=== PATIENT | female | born 1990 | race Two or more races ===

== ENCOUNTER 2022-08-17 08:42 | Inpatient (IN) | payer OTHER, SELFPAY ==
[2022-08-17 09:01] VITALS: BP 110/68; BP 125/93; PULSE 93; RESP 18; TEMP 36.6; O2SAT 97; O2SAT 99; BMI 22.3
--- NOTE | 2022-08-17 09:58 | ED_ITS ---
HPI - Psych General Chief Complaint: Psychiatric Symptoms <Ofelia Roper NP - Last Filed: 08/17/22 17:34> Stated Complaint: [id number] <Ofelia Roper NP - Last Filed: 08/17/22 17:34> Time Seen by Provider: 08/17/22 09:02 <Ofelia Roper NP - Last Filed: 08/17/22 17:34> Source: patient and EMS <Ofelia Roper NP - Last Filed: 08/17/22 17:34> Mode of arrival: EMS <Ofelia Roper NP - Last Filed: 08/17/22 17:34> Limitations: altered mental status <Ofelia Roper NP - Last Filed: 08/17/22 17:34> History of Present Illness HPI Narrative: 32-year-old female with no significant past medical history presents to the emergency department via EMS from [facility] as a section 12 for paranoia, visual/auditory hallucinations, delusion, responding to internal stimuli, not sleeping, history of trauma, and internally preoccupied. She reports occasional headaches, managed with OTC ibuprofen (last dose 4 am with relief of headache); and reports blurry vision which is alleviated when she wears her prescription glasses as her past medical history. During the patient interview, she states that over the last two years, she has had the thought that she has technology inside of her. She denies that the delusion began after a trauma, and states that it began 'randomly'. She denies any suicidal ideations or homicidal ideations during this interview. She states that she is not prescribed any psychiatric medication. She denies any physical ailments such as nausea, vomiting, fever, chills, chest pain, shortness of breath, abdominal pain, abnormal periods, or abnormal vaginal bleeding. <Ofelia Roper NP - Last Filed: 08/17/22 17:34> MD complaint: altered mental status <Ofelia Roper NP - Last Filed: 08/17/22 17:34> Onset (ago): unknown <Ofelia Roper NP - Last Filed: 08/17/22 17:34> History of same: Yes <Ofelia Roper NP - Last Filed: 08/17/22 17:34> Relieving factors: none <Ofelia Roper NP - Last Filed: 08/17/22 17:34> Exacerbating factors: none <Ofelia Roper NP - Last Filed: 08/17/22 17:34> Associated psychiatric symptoms: auditory hallucinations, visual hallucinations and delusions <Ofelia Roper NP - Last Filed: 08/17/22 17:34> Associated symptoms: denies other symptoms <Ofelia Roper [employer] - Last Filed: 08/17/22 17:34> Related Data Home Medications: Home Medications Medication Instructions Recorded Confirmed No Known Home Meds 08/17/22 08/17/22 <Ofelia Roper NP - Last Filed: 08/17/22 17:34> Allergies/Adverse Reactions: Allergies Allergy/AdvReac Type Severity Reaction Status Date / Time No Known Allergies Allergy Verified 08/17/22 09:14 <Ofelia Roper NP - Last Filed: 08/17/22 17:34> Review of Systems Review of Systems: Yes all other systems are reviewed and are negative <Ofelia Roper NP - Last Filed: 08/17/22 17:34> Constitutional: Constitutional: Reports no additional constitutional complaints, Denies chills, Denies fever(s), Reports headache(s) and Reports other (no changes in appetite) <Ofelia Roper NP - Last Filed: 08/17/22 17:34> Eyes: Eyes: Reports no additional eye complaints, Reports blurry vision (without her prescription eye glasses) and Denies change in vision <Ofelia Roper NP - Last Filed: 08/17/22 17:34> ENT: Reports system reviewed and no additional complaints, except as documented, Reports Normal hearing present, Reports headache(s), Denies nasal congestion and Denies sore throat <Ofelia Roper NP - Last Filed: 08/17/22 17:34> Cardiovascular: Cardiovascular: Reports no additional cardiovascular complaints, Denies chest pain and Denies dyspnea <Ofelia Roper NP - Last Filed: 08/17/22 17:34> Respiratory: Respiratory: Reports no additional respiratory complaints, Denies cough and Denies dyspnea <Ofelia Pluciennik, [employer] CLE[employer] - Last Filed: 08/17/22 17:34> Gastrointestinal: Gastrointestinal: Reports no additional gastrointestinal complaints, Denies abdominal pain, Denies change in bowel habits, Denies constipation, Denies diarrhea, Denies nausea and Denies vomiting <Ofelia Pluciennik, [employer]CASE [employer]ER - Last Filed: 08/17/22 17:34> Genitourinary: Genitourinary: Reports no additional female genitourinary complaints, Denies abnormal menses and Denies menorrhagia <Ofelia Pluciennik, [employer]CASE [employer]ER - Last Filed: 08/17/22 17:34> Musculoskeletal: Musculoskeletal: Reports no additional musculoskeletal complaints and Denies abnormal gait <Ofelia Pluciennik, [employer]CASE CLE[employer] - Last Filed: 08/17/22 17:34> Integumentary/Breasts: Skin/Breast: Reports system reviewed and no additional complaints, except as docu, Denies lesions, Denies rash and Denies sores <Ofelia Pluciennik, [employer] - Last Filed: 08/17/22 17:34> Neurologic: Reports system reviewed and no additional complaints, except as documented, Reports Normal hearing present, Denies Abnormal speech present, Denies abnormal gait and Reports headache(s) <Ofelia Pluciennik, [employer]ER - Last Filed: 08/17/22 17:34> Psychiatric: Psychiatric: Reports no additional psychiatric complaints, Reports abnormal sleep pattern, Reports anxiety, Denies change in appetite, Reports auditory hallucinations, Denies homicidal ideation and Denies suicidal ideation <Ofelia Pluciennik, [employer]CASE [employer]ER - Last Filed: 08/17/22 17:34> Endocrine: Endocrine: Reports no additional endocrine complaints <Ofelia Pluciennik, [employer]CASE [employer]ER - Last Filed: 08/17/22 17:34> Hematologic/Lymphatic: Hematologic/Lymphatic: Reports no additional hematologic/lymphatic complaints <Ofelia Pluciennik, [employer]CASE CLE[employer]ER - Last Filed: 08/17/22 17:34> Allergic/Immunologic: Allergic/Immunologic: Reports no additional allergic/immunologic complaints <Ofelia Pluciennik, [employer]CASE [employer]ER - Last Filed: 08/17/22 17:34> PMFSH Past Medical History Attestation statement: The following information was validated with the patient. <Ofelia Roper NP - Last Filed: 08/17/22 17:34> Source: old records reviewed <Ofelia Roper NP - Last Filed: 08/17/22 17:34> Social History Social History: Social History Alcohol intake: unknown Smoked in Last 30 Days: No Use of substances other than those prescribed or required for medical reasons: No Advance Directives: No Advance Directives Information Provided: No Patient : No <Ofelia Roper NP - Last Filed: 08/17/22 17:34> Physical Exam Vital Signs: Vital Signs: Last Vital Signs Temp 97.7 F 08/18/22 09:32 Pulse 113 H 08/18/22 09:32 Resp 13 08/18/22 09:32 BP 122/79 08/18/22 09:32 Pulse Ox 98 08/18/22 09:32 O2 Del Method 08/18/22 09:32 BMI result Body Mass Index 22.3 <Ofelia Roper NP - Last Filed: 08/17/22 17:34> Vital Signs: Last Vital Signs Temp 97.7 F 08/18/22 09:32 Pulse 113 H 08/18/22 09:32 Resp 13 08/18/22 09:32 BP 122/79 08/18/22 09:32 Pulse Ox 98 08/18/22 09:32 O2 Del Method 08/18/22 09:32 BMI result Body Mass Index 22.3 <Zain Pastrana MD - Last Filed: 08/18/22 09:42> Const: General: cooperative, no acute distress and alert <Ofelia Roper NP - Last Filed: 08/17/22 17:34> Nutritional Appearance: well nourished <Ofelia Roper NP - Last Filed: 08/17/22 17:34> Orientation/consciousness: patient oriented x3 <Ofelia Roper NP - Last Filed: 08/17/22 17:34> Limitations: altered mental status <Ofelia Roper NP - Last Filed: 08/17/22 17:34> HEENT: Head: Yes normal to inspection, Yes normocephalic and Yes atraumatic <Ofelia Roper [employer] - Last Filed: 08/17/22 17:34> Ears: hearing grossly normal bilaterally and external ears normal <Ofelia Roper [employer] - Last Filed: 08/17/22 17:34> General nose exam: Normal external nose present <Ofelia Roper [employer] - Last Filed: 08/17/22 17:34> Face and sinus: Yes normal facial exam and Yes face symmetric <Ofelia Roper [employer] - Last Filed: 08/17/22 17:34> Mouth: Normal oral and palatal mucosa present <Ofelia Roper [employer] - Last Filed: 08/17/22 17:34> Teeth and gingiva: dentition normal <Ofelia Roper [employer] CLE[employer] - Last Filed: 08/17/22 17:34> Eyes: General: appearance normal, both eyes and all related structures <Ofelia Roper [employer] - Last Filed: 08/17/22 17:34> Visual Flores: normal visual flores by confrontation <Ofelia Roper [employer] - Last Filed: 08/17/22 17:34> Alignment and Position: alignment normal <Ofelia Roper [employer] - Last Filed: 08/17/22 17:34> Periorbital: periorbital findings normal <Ofelia Roper [employer] - Last Filed: 08/17/22 17:34> Eyelids: Yes eyelids normal <Ofelia Roper [employer] CLE[employer] - Last Filed: 08/17/22 17:34> Conjunctivae: conjunctivae normal <Ofelia Roper [employer] CLE[employer] - Last Filed: 08/17/22 17:34> Sclerae: sclerae normal <Ofelia Roper [employer]CASE CLE[employer]ER - Last Filed: 08/17/22 17:34> Pupils: Equal, round and reactive pupils present <Ofelia Roper [employer] CLE[employer]ER - Last Filed: 08/17/22 17:34> EOM: EOMs intact bilaterally <Ofelia Roper [employer]ER - Last Filed: 08/17/22 17:34> Neck: Neck: Yes normal visual inspection and Yes full ROM <Ofelia Roper, P[employer]OWCASE CLE[employer]ER - Last Filed: 08/17/22 17:34> Chest: Chest palpation & inspection: normal inspection of the chest <Ofelia Martínqamar, [employer]CASE CLE[employer]ER - Last Filed: 08/17/22 17:34> Resp: Effort & Inspection: normal respiratory effort, able to speak in complete sentences and not labored <Ofelia Martíncasiemalinda, P[employer]OWCASE CLE[employer]ER - Last Filed: 08/17/22 17:34> Auscultation: clear to auscultation bilaterally <Ofelia Popjames, [employer] CLE[employer]ER - Last Filed: 08/17/22 17:34> Cardio: Rate: regular rate <Ofelia Jacquelin, P[employer]OWCASE CLE[employer]ER - Last Filed: 08/17/22 17:34> Rhythm: regular rhythm <Ofelia Martínqamar, P[employer]OWCASE CLE[employer]ER - Last Filed: 08/17/22 17:34> GI: Inspection: Yes normal to inspection <Ofelia Martíncasiemalinda, P[employer]OWCASE CLE[employer]ER - Last Filed: 08/17/22 17:34> Auscultation: normal bowel sounds <Ofelia Jacquelin, PILLOWCASE CLE[employer]ER - Last Filed: 08/17/22 17:34> Back/Spine/Pelvis: Cervical Spine: cervical ROM normal <Ofelia Popmichellemalinda, P[employer]CASE CLE[employer]ER - Last Filed: 08/17/22 17:34> Thoracic/Lumbar Spine: thoraco-lumbar ROM normal <Ofelia Roper, PILLOWCASE CLE[employer]ER - Last Filed: 08/17/22 17:34> Skin: General skin exam: no rashes or lesions noted <Ofelia Popmichellemalinda, PILLOWCASE CLE[employer]ER - Last Filed: 08/17/22 17:34> Neuro: General: patient oriented x3, gait normal and moves all extremities <Ofelia Martíncasiemalinda, PILLOWCASE CLEANER - Last Filed: 08/17/22 17:34> Cranial nerves: Yes Equal, round and reactive pupils present, Yes Bilaterally intact EOM present and Yes Normal hearing present <Ofelia Martíncasiemalinda, PILLOWCASE CLEANER - Last Filed: 08/17/22 17:34> Cognition (Neuro): abnormal cognition <Ofelia Jacquelin, PILLOWCASE CLE[employer]ER - Last Filed: 08/17/22 17:34> Speech: No Abnormal speech present <Ofeliaseth Roper, PILLOWCASE CLE[employer]ER - Last Filed: 08/17/22 17:34> Gait exam (Neuro): Normal gait present <Ofeliaseth Roper, PILLOWCASE CLE[employer]ER - Last Filed: 08/17/22 17:34> Motor exam (neuro): 5/5 motor strength present throughout <Ofelia Jacquelin, PILLOWCASE CLE[employer]ER - Last Filed: 08/17/22 17:34> Extrem: General: Yes normal to inspection, Yes full ROM and Yes capillary r efill normal <Ofelia Jacquelin, PILLOWCASE CLE[employer]ER - Last Filed: 08/17/22 17:34> Psych: Appearance: grossly normal <Ofelia Plucqamar, PILLOWCASE CLE[employer]ER - Last Filed: 08/17/22 17:34> Mental Status: other <Ofelia Jacquelin, PILLOWCASE CLE[employer]ER - Last Filed: 08/17/22 17:34> Speech and movement: Normal speech and movement present and Clear speech present; No Psychomotor agitation in speech present or Restless speech present <Ofelia Plucqamar, PILLOWCASE CLE[employer]ER - Last Filed: 08/17/22 17:34> Attitude: cooperative <Ofelia Plucqamar, PILLOWCASE CLE[employer]ER - Last Filed: 08/17/22 17:34> Thought process: Illogical thought process present <Ofelia Pljames, P[employer]OWCASE CLE[employer]ER - Last Filed: 08/17/22 17:34> Thought content: suicidality, no homicidality, delusions and Hallucination(s) present auditory and visual <Ofelia Jacquelin, PILLOWCASE CLE[employer]ER - Last Filed: 08/17/22 17:34> Insight: Fair insight present (Psych) <Ofelia Popucqamar, P[employer]OWCASE CLE[employer]ER - Last Filed: 08/17/22 17:34> Judgement: Fair judgement present (Psych) <Ofelia Plucienmalinda, PILLOWCASE CLE[employer]ER - Last Filed: 08/17/22 17:34> Course Reevaluation(s) Reevaluation #1: 0915: Diagnostics ordered. Blood work: CMP. Urine: MAYEN, , and culture. Covid swab. 1000: Consult to [facility] for crisis initiated 1030: Bloodwork unremarkable. Covid negative. 1115: Notified by [facility] that patient's family member was contacted and stating that she has had an acute decompensation over the last 3 weeks. Patient states she is seeing her brother and has plans to me him in [place] at 5:00 p.m. patient calm and cooperative at this time. Patient urinating without issue, however; refusing to provide urine for testing. 1230: Urine sample negative for infection, , and toxicology. Pt medically cleared. <Ofelia Roper NP - Last Filed: 08/17/22 17:34> Reevaluation #2: Stopped taking her meds and comes in disorganized and delirium, is currently a bed search on a section, had an uneventful night. <Zain Pastrana MD - Last Filed: 08/18/22 09:42> Time: 09:42 <Zain Pastrana MD - Last Filed: 08/18/22 09:42> Medications Administered Discontinued Medications Generic Name Dose Route Start Last Admin Trade Name Freq PRN Reason Stop Dose Admin Lorazepam 2 mg 08/17/22 23:30 08/17/22 23:33 Lorazepam 1 Mg Tablet PO 08/17/22 23:31 2 mg ONCE ONE Administration <Ofelia Roper NP - Last Filed: 08/17/22 17:34> Medications Administered Discontinued Medications Generic Name Dose Route Start Last Admin Trade Name Freq PRN Reason Stop Dose Admin Lorazepam 2 mg 08/17/22 23:30 08/17/22 23:33 Lorazepam 1 Mg Tablet PO 08/17/22 23:31 2 mg ONCE ONE Administration <Zain Pastrana MD - Last Filed: 08/18/22 09:42> MDM - Psych MDM Narrative Medical decision making narrative: 32-year-old female presenting to the ED by EMS from [facility] and crisis on a Section 12 for paranoia, delusions, auditory and visual hallucinations. Blood work reviewed and unremarkable. Toxicology negative. Ethanol level less than 10. Negative for COVID-19. Urine negative for infection or . Pt medically cleared. [facility] crisis consult initiated for psychiatric bed search. <Ofelia Roper NP - Last Filed: 08/17/22 17:34> Medical Records Attestation: I reviewed the patient's medical records. <Ofelia Roper NP - Last Filed: 08/17/22 17:34> Lab Data Attestation: I reviewed the patient's lab results. <Ofelia Roper NP - Last Filed: 08/17/22 17:34> Result diagrams: : 08/17/22 09:56 08/17/22 09:56 <Ofelia Roper NP - Last Filed: 08/17/22 17:34> Labs: Lab Results 08/17/22 08/17/22 08/17/22 Range/Units 09:53 09:56 09:56 WBC 6.0 (4.8-10.8) X10*3/uL RBC 4.38 (4.20-5.50) X10*6/uL Hgb 12.5 (12.0-16.0) g/dl Hct 37.9 (37.0-47.0) % MCV 86.5 (80.0-98.0) fL MCH 28.5 (27.0-33.0) pg MCHC 33.0 (31.0-35.0) g/dl RDW 13.1 (11.0-16.0) % Plt Count 220 (160-400) X10*3/uL MPV 9.6 (9.4-12.3) fL Immature Gran % (Auto) 0.2 (0.0-0.4) % Neut % (Auto) 68.5 (45-73) % Lymph % (Auto) 22.5 (20-40) % [place] % (Auto) 8.0 (2-11) % Eos % (Auto) 0.5 (0-4) % Baso % (Auto) 0.3 (0-2) % Lymph # (Auto) 1.4 (1.2-4.9) X10*3/uL [place] # (Auto) 0.5 (0.1-1.2) X10*3/uL Eos # (Auto) 0.0 (0.0-0.4) X10*3/uL Baso # (Auto) 0.0 (0.0-0.2) X10*3/uL Abs Immat Gran (auto) 0.01 (0.00-0.03) X10*3/uL Absolute Neuts (auto) 4.1 (2.0-8.3) x10*3/uL Absolute Nucleated RBC 0.000 (0.0-0.012) X10*3/uL Nucleated RBC % (auto) 0.0 (0.0-0.2) /100WBC Sodium 141 (135-145) mmol/L Potassium 3.7 (3.3-5.1) mmol/L Chloride 107 (96-108) mmol/L Carbon Dioxide 23 (22-29) mmol/L Anion Gap 15 (12-20) BUN 10 (9-16) mg/dL Creatinine 0.73 (0.5-1.4) mg/dL Estim Creat Clear Calc 96.4 Estimated GFR > 60 Random Glucose 102 (60-115) mg/dL Calcium 9.6 (8.4-10.2) mg/dL Total Bilirubin 0.5 (0.0-1.0) mg/dL AST 20 (5-31) U/L ALT 15 (0-31) U/L Alkaline Phosphatase 52 (39-117) U/L Total Protein 7.7 (6.5-8.0) g/dL Albumin 4.7 (3.5-5.0) g/dL Urine Color Urine Appearance Urine pH (5.0-9.0) Ur Specific [place] (1.005-1.025) Urine Protein (Neg-Trace) mg/dL Urine Glucose (UA) (Negative) mg/dL Urine Ketones (Negative) mg/dL Urine Blood (Negative) Urine Nitrite (Negative) Ur Leukocyte Esterase (Negative) Urine Test (NEGATIVE) Urine Opiates Screen (Not Detect) Urine Fentanyl Screen (Not Detect) Ur Barbiturates Screen (Not Detect) Ur Phencyclidine Scrn (Not Detect) Ur Amphetamines Screen (Not Detect) U Benzodiazepines Scrn (Not Detect) Urine Cocaine Screen (Not Detect) U Marijuana (THC) Screen (Not Detect) Ethyl Alcohol mg/dL COVID-19 (ANA MARIA) Negative (Negative) COVID-19 Clin Com See Note 08/17/22 08/17/22 08/17/22 Range/Units 09:56 12:18 12:18 WBC (4.8-10.8) X10*3/uL RBC (4.20-5.50) X10*6/uL Hgb (12.0-16.0) g/dl Hct (37.0-47.0) % MCV (80.0-98.0) fL MCH (27.0-33.0) pg MCHC (31.0-35.0) g/dl RDW (11.0-16.0) % Plt Count (160-400) X10*3/uL MPV (9.4-12.3) fL Immature Gran % (Auto) (0.0-0.4) % Neut % (Auto) (45-73) % Lymph % (Auto) (20-40) % [place] % (Auto) (2-11) % Eos % (Auto) (0-4) % Baso % (Auto) (0-2) % Lymph # (Auto) (1.2-4.9) X10*3/uL [place] # (Auto) (0.1-1.2) X10*3/uL Eos # (Auto) (0.0-0.4) X10*3/uL Baso # (Auto) (0.0-0.2) X10*3/uL Abs Immat Gran (auto) (0.00-0.03) X10*3/uL Absolute Neuts (auto) (2.0-8.3) x10*3/uL Absolute Nucleated RBC (0.0-0.012) X10*3/uL Nucleated RBC % (auto) (0.0-0.2) /100WBC Sodium (135-145) mmol/L Potassium (3.3-5.1) mmol/L Chloride (96-108) mmol/L Carbon Dioxide (22-29) mmol/L Anion Gap (12-20) BUN (9-16) mg/dL Creatinine (0.5-1.4) mg/dL Estim Creat Clear Calc Estimated GFR Random Glucose (60-115) mg/dL Calcium (8.4-10.2) mg/dL Total Bilirubin (0.0-1.0) mg/dL AST (5-31) U/L ALT (0-31) U/L Alkaline Phosphatase (39-117) U/L Total Protein (6.5-8.0) g/dL Albumin (3.5-5.0) g/dL Urine Color Yellow Urine Appearance Clear Urine pH 5.5 (5.0-9.0) Ur Specific [place] >= 1.030 H (1.005-1.025) Urine Protein Trace (Neg-Trace) mg/dL Urine Glucose (UA) Negative (Negative) mg/dL Urine Ketones >=160 (Negative) mg/dL Urine Blood Negative (Negative) Urine Nitrite Negative (Negative) Ur Leukocyte Esterase Negative (Negative) Urine Test NEGATIVE (NEGATIVE) Urine Opiates Screen (Not Detect) Urine Fentanyl Screen (Not Detect) Ur Barbiturates Screen (Not Detect) Ur Phencyclidine Scrn (Not Detect) Ur Amphetamines Screen (Not Detect) U Benzodiazepines Scrn (Not Detect) Urine Cocaine Screen (Not Detect) U Marijuana (THC) Screen (Not Detect) Ethyl Alcohol < 10 mg/dL COVID-19 (ANA MARIA) (Negative) COVID-19 Clin Com 08/17/22 Range/Units 12:18 WBC (4.8-10.8) X10*3/uL RBC (4.20-5.50) X10*6/uL Hgb (12.0-16.0) g/dl Hct (37.0-47.0) % MCV (80.0-98.0) fL MCH (27.0-33.0) pg MCHC (31.0-35.0) g/dl RDW (11.0-16.0) % Plt Count (160-400) X10*3/uL MPV (9.4-12.3) fL Immature Gran % (Auto) (0.0-0.4) % Neut % (Auto) (45-73) % Lymph % (Auto) (20-40) % [place] % (Auto) (2-11) % Eos % (Auto) (0-4) % Baso % (Auto) (0-2) % Lymph # (Auto) (1.2-4.9) X10*3/uL [place] # (Auto) (0.1-1.2) X10*3/uL Eos # (Auto) (0.0-0.4) X10*3/uL Baso # (Auto) (0.0-0.2) X10*3/uL Abs Immat Gran (auto) (0.00-0.03) X10*3/uL Absolute Neuts (auto) (2.0-8.3) x10*3/uL Absolute Nucleated RBC (0.0-0.012) X10*3/uL Nucleated RBC % (auto) (0.0-0.2) /100WBC Sodium (135-145) mmol/L Potassium (3.3-5.1) mmol/L Chloride (96-108) mmol/L Carbon Dioxide (22-29) mmol/L Anion Gap (12-20) BUN (9-16) mg/dL Creatinine (0.5-1.4) mg/dL Estim Creat Clear Calc Estimated GFR Random Glucose (60-115) mg/dL Calcium (8.4-10.2) mg/dL Total Bilirubin (0.0-1.0) mg/dL AST (5-31) U/L ALT (0-31) U/L Alkaline Phosphatase (39-117) U/L Total Protein (6.5-8.0) g/dL Albumin (3.5-5.0) g/dL Urine Color Urine Appearance Urine pH (5.0-9.0) Ur Specific [place] (1.005-1.025) Urine Protein (Neg-Trace) mg/dL Urine Glucose (UA) (Negative) mg/dL Urine Ketones (Negative) mg/dL Urine Blood (Negative) Urine Nitrite (Negative) Ur Leukocyte Esterase (Negative) Urine Test (NEGATIVE) Urine Opiates Screen Not Detected (Not Detect) Urine Fentanyl Screen Not Detected (Not Detect) Ur Barbiturates Screen Not Detected (Not Detect) Ur Phencyclidine Scrn Not Detected (Not Detect) Ur Amphetamines Screen Not Detected (Not Detect) U Benzodiazepines Scrn Not Detected (Not Detect) Urine Cocaine Screen Not Detected (Not Detect) U Marijuana (THC) Screen Not Detected (Not Detect) Ethyl Alcohol mg/dL COVID-19 (ANA MARIA) (Negative) COVID-19 Clin Com <Ofelia Roper NP - Last Filed: 08/17/22 17:34> Lab Results 08/17/22 08/17/22 08/17/22 Range/Units 09:53 09:56 09:56 WBC 6.0 (4.8-10.8) X10*3/uL RBC 4.38 (4.20-5.50) X10*6/uL Hgb 12.5 (12.0-16.0) g/dl Hct 37.9 (37.0-47.0) % MCV 86.5 (80.0-98.0) fL MCH 28.5 (27.0-33.0) pg MCHC 33.0 (31.0-35.0) g/dl RDW 13.1 (11.0-16.0) % Plt Count 220 (160-400) X10*3/uL MPV 9.6 (9.4-12.3) fL Immature Gran % (Auto) 0.2 (0.0-0.4) % Neut % (Auto) 68.5 (45-73) % Lymph % (Auto) 22.5 (20-40) % [place] % (Auto) 8.0 (2-11) % Eos % (Auto) 0.5 (0-4) % Baso % (Auto) 0.3 (0-2) % Lymph # (Auto) 1.4 (1.2-4.9) X10*3/uL [place] # (Auto) 0.5 (0.1-1.2) X10*3/uL Eos # (Auto) 0.0 (0.0-0.4) X10*3/uL Baso # (Auto) 0.0 (0.0-0.2) X10*3/uL Abs Immat Gran (auto) 0.01 (0.00-0.03) X10*3/uL Absolute Neuts (auto) 4.1 (2.0-8.3) x10*3/uL Absolute Nucleated RBC 0.000 (0.0-0.012) X10*3/uL Nucleated RBC % (auto) 0.0 (0.0-0.2) /100WBC Sodium 141 (135-145) mmol/L Potassium 3.7 (3.3-5.1) mmol/L Chloride 107 (96-108) mmol/L Carbon Dioxide 23 (22-29) mmol/L Anion Gap 15 (12-20) BUN 10 (9-16) mg/dL Creatinine 0.73 (0.5-1.4) mg/dL Estim Creat Clear Calc 96.4 Estimated GFR > 60 Random Glucose 102 (60-115) mg/dL Calcium 9.6 (8.4-10.2) mg/dL Total Bilirubin 0.5 (0.0-1.0) mg/dL AST 20 (5-31) U/L ALT 15 (0-31) U/L Alkaline Phosphatase 52 (39-117) U/L Total Protein 7.7 (6.5-8.0) g/dL Albumin 4.7 (3.5-5.0) g/dL Urine Color Urine Appearance Urine pH (5.0-9.0) Ur Specific [place] (1.005-1.025) Urine Protein (Neg-Trace) mg/dL Urine Glucose (UA) (Negative) mg/dL Urine Ketones (Negative) mg/dL Urine Blood (Negative) Urine Nitrite (Negative) Ur Leukocyte Esterase (Negative) Urine Test (NEGATIVE) Urine Opiates Screen (Not Detect) Urine Fentanyl Screen (Not Detect) Ur Barbiturates Screen (Not Detect) Ur Phencyclidine Scrn (Not Detect) Ur Amphetamines Screen (Not Detect) U Benzodiazepines Scrn (Not Detect) Urine Cocaine Screen (Not Detect) U Marijuana (THC) Screen (Not Detect) Ethyl Alcohol mg/dL COVID-19 (ANA MARIA) Negative (Negative) COVID-19 Clin Com See Note 08/17/22 08/17/22 08/17/22 Range/Units 09:56 12:18 12:18 WBC (4.8-10.8) X10*3/uL RBC (4.20-5.50) X10*6/uL Hgb (12.0-16.0) g/dl Hct (37.0-47.0) % MCV (80.0-98.0) fL MCH (27.0-33.0) pg MCHC (31.0-35.0) g/dl RDW (11.0-16.0) % Plt Count (160-400) X10*3/uL MPV (9.4-12.3) fL Immature Gran % (Auto) (0.0-0.4) % Neut % (Auto) (45-73) % Lymph % (Auto) (20-40) % [place] % (Auto) (2-11) % Eos % (Auto) (0-4) % Baso % (Auto) (0-2) % Lymph # (Auto) (1.2-4.9) X10*3/uL [place] # (Auto) (0.1-1.2) X10*3/uL Eos # (Auto) (0.0-0.4) X10*3/uL Baso # (Auto) (0.0-0.2) X10*3/uL Abs Immat Gran (auto) (0.00-0.03) X10*3/uL Absolute Neuts (auto) (2.0-8.3) x10*3/uL Absolute Nucleated RBC (0.0-0.012) X10*3/uL Nucleated RBC % (auto) (0.0-0.2) /100WBC Sodium (135-145) mmol/L Potassium (3.3-5.1) mmol/L Chloride (96-108) mmol/L Carbon Dioxide (22-29) mmol/L Anion Gap (12-20) BUN (9-16) mg/dL Creatinine (0.5-1.4) mg/dL Estim Creat Clear Calc Estimated GFR Random Glucose (60-115) mg/dL Calcium (8.4-10.2) mg/dL Total Bilirubin (0.0-1.0) mg/dL AST (5-31) U/L ALT (0-31) U/L Alkaline Phosphatase (39-117) U/L Total Protein (6.5-8.0) g/dL Albumin (3.5-5.0) g/dL Urine Color Yellow Urine Appearance Clear Urine pH 5.5 (5.0-9.0) Ur Specific [place] >= 1.030 H (1.005-1.025) Urine Protein Trace (Neg-Trace) mg/dL Urine Glucose (UA) Negative (Negative) mg/dL Urine Ketones >=160 (Negative) mg/dL Urine Blood Negative (Negative) Urine Nitrite Negative (Negative) Ur Leukocyte Esterase Negative (Negative) Urine Test NEGATIVE (NEGATIVE) Urine Opiates Screen (Not Detect) Urine Fentanyl Screen (Not Detect) Ur Barbiturates Screen (Not Detect) Ur Phencyclidine Scrn (Not Detect) Ur Amphetamines Screen (Not Detect) U Benzodiazepines Scrn (Not Detect) Urine Cocaine Screen (Not Detect) U Marijuana (THC) Screen (Not Detect) Ethyl Alcohol < 10 mg/dL COVID-19 (ANA MARIA) (Negative) COVID-19 Clin Com 08/17/22 Range/Units 12:18 WBC (4.8-10.8) X10*3/uL RBC (4.20-5.50) X10*6/uL Hgb (12.0-16.0) g/dl Hct (37.0-47.0) % MCV (80.0-98.0) fL MCH (27.0-33.0) pg MCHC (31.0-35.0) g/dl RDW (11.0-16.0) % Plt Count (160-400) X10*3/uL MPV (9.4-12.3) fL Immature Gran % (Auto) (0.0-0.4) % Neut % (Auto) (45-73) % Lymph % (Auto) (20-40) % [place] % (Auto) (2-11) % Eos % (Auto) (0-4) % Baso % (Auto) (0-2) % Lymph # (Auto) (1.2-4.9) X10*3/uL [place] # (Auto) (0.1-1.2) X10*3/uL Eos # (Auto) (0.0-0.4) X10*3/uL Baso # (Auto) (0.0-0.2) X10*3/uL Abs Immat Gran (auto) (0.00-0.03) X10*3/uL Absolute Neuts (auto) (2.0-8.3) x10*3/uL Absolute Nucleated RBC (0.0-0.012) X10*3/uL Nucleated RBC % (auto) (0.0-0.2) /100WBC Sodium (135-145) mmol/L Potassium (3.3-5.1) mmol/L Chloride (96-108) mmol/L Carbon Dioxide (22-29) mmol/L Anion Gap (12-20) BUN (9-16) mg/dL Creatinine (0.5-1.4) mg/dL Estim Creat Clear Calc Estimated GFR Random Glucose (60-115) mg/dL Calcium (8.4-10.2) mg/dL Total Bilirubin (0.0-1.0) mg/dL AST (5-31) U/L ALT (0-31) U/L Alkaline Phosphatase (39-117) U/L Total Protein (6.5-8.0) g/dL Albumin (3.5-5.0) g/dL Urine Color Urine Appearance Urine pH (5.0-9.0) Ur Specific [place] (1.005-1.025) Urine Protein (Neg-Trace) mg/dL Urine Glucose (UA) (Negative) mg/dL Urine Ketones (Negative) mg/dL Urine Blood (Negative) Urine Nitrite (Negative) Ur Leukocyte Esterase (Negative) Urine Test (NEGATIVE) Urine Opiates Screen Not Detected (Not Detect) Urine Fentanyl Screen Not Detected (Not Detect) Ur Barbiturates Screen Not Detected (Not Detect) Ur Phencyclidine Scrn Not Detected (Not Detect) Ur Amphetamines Screen Not Detected (Not Detect) U Benzodiazepines Scrn Not Detected (Not Detect) Urine Cocaine Screen Not Detected (Not Detect) U Marijuana (THC) Screen Not Detected (Not Detect) Ethyl Alcohol mg/dL COVID-19 (ANA MARIA) (Negative) COVID-19 Clin Com <Zain Pastrana MD - Last Filed: 08/18/22 09:42> Discharge Plan Discharge Clinical Impression: Acute paranoia <Ofelia Roper NP - Last Filed: 08/17/22 17:34> Patient Disposition: Still a Patient <Ofelia Roper NP - Last Filed: 08/17/22 17:34> Prescriptions: No Action No Known Home Meds <Ofelia Roper NP - Last Filed: 08/17/22 17:34> Interventions: [place]-Suicide Risk Severity Scale Last Done: 08/17/22 09:09 <Ofelia Roper NP - Last Filed: 08/17/22 17:34>
[2022-08-17 10:07] LABS: MANUAL DIFF FLAG NO
[2022-08-17 10:10] LABS: Basophils Percent Auto 0.3 % (0-2); Eosinophils Percent Auto 0.5 % (0-4); Hematocrit 37.9 % (37.0-47.0); Hemoglobin 12.5 g/dl (12.0-16.0); Imm Gran Abs Auto 0.01 X10*3/uL (0.00-0.03); Imm Gran Pct Auto 0.2 % (0.0-0.4); Lymphocytes Absolute Auto 1.4 X10*3/uL (1.2-4.9); Lymphocytes Percent Auto 22.5 % (20-40); Mean Corpuscular Hemoglobin 28.5 pg (27.0-33.0); Mean Corpuscular Volume 86.5 fL (80.0-98.0); Mean Platelet Volume 9.6 fL (9.4-12.3); Monocytes Absolute Auto 0.5 X10*3/uL (0.1-1.2); Neutrophils Absolute Auto 4.1 x10*3/uL (2.0-8.3); Neutrophils Percent Auto 68.5 % (45-73); Platelet Count 220 X10*3/uL (160-400); Red Blood Count 4.38 X10*6/uL (4.20-5.50); Red Cell Distribution Width 13.1 % (11.0-16.0)
[2022-08-17 10:23] LABS: COVID-19 Test Negative (Negative); IDNOW Serial# 55D5AD1C
[2022-08-17 10:24] LABS: Ethanol < 10 mg/dL
[2022-08-17 10:28] LABS: Alanine Aminotransferase 15 U/L (0-31); Albumin Level 4.7 g/dL (3.5-5.0); Alkaline Phosphatase 52 U/L (39-117); Anion Gap 15 (12-20); Aspartate Amino Transferase 20 U/L (5-31); Bilirubin Total 0.5 mg/dL (0.0-1.0); Blood Urea Nitrogen 10 mg/dL (9-16); Calcium 9.6 mg/dL (8.4-10.2); Carbon Dioxide 23 mmol/L (22-29); Chloride 107 mmol/L (96-108); Creatinine Clr Calc Pharmacy 96.4; Estimated Glomerular Filt Rate > 60; Glucose Random 102 mg/dL (60-115); Potassium 3.7 mmol/L (3.3-5.1); Sodium 141 mmol/L (135-145); Total Protein 7.7 g/dL (6.5-8.0)
--- NOTE | 2022-08-17 11:22 | PC.NURSE ---
Addendum entered by Marjorie Quiroga 08/17/22 14:47: Pt requesting to view s12. Photo copy made provided. Care team notified- care restaurant team member will come out to speak w/ patient and family. Original Note: Pt sister raul [phone] contacted regarding pt. Permission given to talk to sister by patient. Per sister: the patient had an acute decompensation in mental status x 3 weeks. progressing to visual hallucinations and responding to internal stimuli. Pt reports seeing brother and planning on meeting him in [place] at 1700. Per sister-brother has been for some time and the patient has been accusing raul and other family of lying to her about his and keeping [the brother]from me . Safety of patient assured. Pt given coloring books at this time.
[2022-08-17 12:27] LABS: Appearance Urine Clear; Color Urine Yellow; Glucose Urine UA Negative (Negative); Leukocyte Esterase Urine Negative (Negative); Nitrite Urine Negative (Negative); PH 5.5 (5.0-9.0); Specific Gravity - Urine >= 1.030 (1.005-1.025); Urine Blood Negative (Negative); Urine Ketones >=160 mg/dL (Negative); Urine Protein Trace mg/dL (Neg-Trace)
[2022-08-17 12:28] LABS: UPreg QC Valid YES; Urine Pregnancy NEGATIVE (NEGATIVE)
[2022-08-17 12:38] LABS: Amphetamine Screen Urine Not Detected (Not Detect); Barbiturates, Urine Not Detected (Not Detect); Benzodiazepines Screen Urine Not Detected (Not Detect); Cannabinoid Screen Urine Not Detected (Not Detect); Cocaine Screen Urine Not Detected (Not Detect); Fentanyl, urine Not Detected (Not Detect); Opiate Screen Urine Not Detected (Not Detect); Phencyclidine Screen Urine Not Detected (Not Detect)
[2022-08-17 23:28] VITALS: BP 133/91; PULSE 105; RESP 18; TEMP 36.6; O2SAT 99
[2022-08-17] MEDS: LORazepam 1 MG TABLET 2 MG PO (23:33)
--- NOTE | 2022-08-17 23:38 | PC.NURSE ---
Patient appears restless, frequently visiting bathroom, HR 105, provider notified/ordered Ativan 2 mg PO/administered as ordered/pending effect, patient reluctant to take medication but took after providing med education, behavior non concerning, patient continues to responding internal stimuli, disposition per [facility] is section 12 inpatient bed search, patient was assessed in the community, patient is currently not on any medication, she had been off her Citalopram since last April, will continue to monitor.
[2022-08-18 09:32] VITALS: BP 122/79; PULSE 113; RESP 13; TEMP 36.5; O2SAT 98
--- NOTE | 2022-08-18 10:56 | PC.NURSE ---
took a long shower this morning, i spoke w her and her mother about her section and plan for admission, pt denies hallucinations, seems like she doesn't think she needs admission but was not argumentative, good eye contact and pleasant
[2022-08-18 16:56] VITALS: BP 113/80; PULSE 106; RESP 15; TEMP 36.6; O2SAT 99
--- NOTE | 2022-08-18 17:37 | HO.PSYADMNOT ---
HPI Date of Service: 08/18/22 Chief Complaint: Psychosis HPI Narrative: Lin is a 32 y.o. female who carries a dx of schizoaffective disorder, bipolar type. She [place] [facility] [place] after her mother called crisis due to making delusional statements i.e. saying she is part of the [place] and speaking to her brother. She told crisis she has technology throughout her body, that she is friends with Leeann Faria and talks to her daily, laughing incongruently during assessment. She has not been sleeping x a few days. Impaired functioning i.e. leaves food on stove too long. Per pt?s mom, her sx have been worse x 2 weeks but have been ongoing x 3 yrs after her brother was murdered. Utox negative, No ETOH use. I spoke with pt this evening. She states she wants medication for sleep because her sleep is ?bad.? Says sleep has been poor for months, her daytime energy is ?very low,? she gets two hours at most. States she has a long hx of insomnia and it is worse now. Lack of benefit on melatonin and Benadryl. Says she is anxious, has a hx of panic attacks. Denies having nightmares or flashbacks. She admits to having AH, says she hears voices and they ?talk to me about stuff,? says they tell her good things and she can ignore them. Says her appetite is good. Reports she came to the hospital because she wants a psychiatrist. Mood is ?depressed,? however also says she has days in which her energy is high and she is ?dancing and praying? and this can last a few days. Denies SI, denies hx of self harm. Says she feels safe. Cuts interview off early, ?can we talk about this tomorrow?? Past Psychiatric History: -Has OP therapy from [facility] x a few months. -Hx of crisis evals, last 03/03/22 due to paranoia that someone has been following and watching her. Crisis eval 12/06/20 due to her mom contacting the police due to paranoia. -Past meds: celexa (took for a day or two, had GI SE) [facility] Family History: -Depression, anxiety, someone ?losing their mind,? substance use Social History: -Resides with pt?s mother (Liza) and daughter (David, age 13). -Unemployed, isolating in her room daily -Born in [place], moved [place] the [place] at age 8. Graduated from [employer], no IEP or 504. Substance History: -Denies Trauma History: -Brother murdered 12/05/2017 Diagnostics Vital Signs (24Hr): Vital Signs - 24 hr 08/17/22 23:28 08/18/22 09:32 08/18/22 16:56 Temperature 97.8 F 97.7 F 97.9 F Pulse Rate 105 H 113 H 106 H Respiratory Rate 18 13 15 Blood Pressure 133/91 H 122/79 113/80 Pulse Oximetry 99 98 99 Oxygen Delivery Method Room Air Room Air Room Air BMI result Body Mass Index 22.3 Labs Results: 08/17/22 09:56 08/17/22 09:56 Labs: Laboratory Results - last 48 hr 08/17/22 08/17/22 08/17/22 09:53 09:56 09:56 WBC 6.0 RBC 4.38 Hgb 12.5 Hct 37.9 MCV 86.5 MCH 28.5 MCHC 33.0 RDW 13.1 Plt Count 220 MPV 9.6 Immature Gran % (Auto) 0.2 Neut % (Auto) 68.5 Lymph % (Auto) 22.5 [place] % (Auto) 8.0 Eos % (Auto) 0.5 Baso % (Auto) 0.3 Lymph # (Auto) 1.4 [place] # (Auto) 0.5 Eos # (Auto) 0.0 Baso # (Auto) 0.0 Abs Immat Gran (auto) 0.01 Absolute Neuts (auto) 4.1 Absolute Nucleated RBC 0.000 Nucleated RBC % (auto) 0.0 Sodium 141 Potassium 3.7 Chloride 107 Carbon Dioxide 23 Anion Gap 15 BUN 10 Creatinine 0.73 Estim Creat Clear Calc 96.4 Estimated GFR > 60 Random Glucose 102 Calcium 9.6 Total Bilirubin 0.5 AST 20 ALT 15 Alkaline Phosphatase 52 Total Protein 7.7 Albumin 4.7 Urine Color Urine Appearance Urine pH Ur Specific [place] Urine Protein Urine Glucose (UA) Urine Ketones Urine Blood Urine Nitrite Ur Leukocyte Esterase Urine Test Urine Opiates Screen Urine Fentanyl Screen Ur Barbiturates Screen Ur Phencyclidine Scrn Ur Amphetamines Screen U Benzodiazepines Scrn Urine Cocaine Screen U Marijuana (THC) Screen Ethyl Alcohol COVID-19 (ANA MARIA) Negative COVID-19 Clin Com See Note 08/17/22 08/17/22 08/17/22 09:56 12:18 12:18 WBC RBC Hgb Hct MCV MCH MCHC RDW Plt Count MPV Immature Gran % (Auto) Neut % (Auto) Lymph % (Auto) [place] % (Auto) Eos % (Auto) Baso % (Auto) Lymph # (Auto) [place] # (Auto) Eos # (Auto) Baso # (Auto) Abs Immat Gran (auto) Absolute Neuts (auto) Absolute Nucleated RBC Nucleated RBC % (auto) Sodium Potassium Chloride Carbon Dioxide Anion Gap BUN Creatinine Estim Creat Clear Calc Estimated GFR Random Glucose Calcium Total Bilirubin AST ALT Alkaline Phosphatase Total Protein Albumin Urine Color Yellow Urine Appearance Clear Urine pH 5.5 Ur Specific [place] >= 1.030 H Urine Protein Trace Urine Glucose (UA) Negative Urine Ketones >=160 Urine Blood Negative Urine Nitrite Negative Ur Leukocyte Esterase Negative Urine Test NEGATIVE Urine Opiates Screen Urine Fentanyl Screen Ur Barbiturates Screen Ur Phencyclidine Scrn Ur Amphetamines Screen U Benzodiazepines Scrn Urine Cocaine Screen U Marijuana (THC) Screen Ethyl Alcohol < 10 COVID-19 (ANA MARIA) COVID-19 Clin Com 08/17/22 12:18 WBC RBC Hgb Hct MCV MCH MCHC RDW Plt Count MPV Immature Gran % (Auto) Neut % (Auto) Lymph % (Auto) [place] % (Auto) Eos % (Auto) Baso % (Auto) Lymph # (Auto) [place] # (Auto) Eos # (Auto) Baso # (Auto) Abs Immat Gran (auto) Absolute Neuts (auto) Absolute Nucleated RBC Nucleated RBC % (auto) Sodium Potassium Chloride Carbon Dioxide Anion Gap BUN Creatinine Estim Creat Clear Calc Estimated GFR Random Glucose Calcium Total Bilirubin AST ALT Alkaline Phosphatase Total Protein Albumin Urine Color Urine Appearance Urine pH Ur Specific [place] Urine Protein Urine Glucose (UA) Urine Ketones Urine Blood Urine Nitrite Ur Leukocyte Esterase Urine Test Urine Opiates Screen Not Detected Urine Fentanyl Screen Not Detected Ur Barbiturates Screen Not Detected Ur Phencyclidine Scrn Not Detected Ur Amphetamines Screen Not Detected U Benzodiazepines Scrn Not Detected Urine Cocaine Screen Not Detected U Marijuana (THC) Screen Not Detected Ethyl Alcohol COVID-19 (ANA MARIA) COVID-19 Clin Com Meds/Allergies Meds Home Medications Medication Instructions Recorded Confirmed Type No Known Home Meds 08/17/22 08/17/22 History Allergies Allergies Allergy/AdvReac Type Severity Reaction Status Date / Time No Known Allergies Allergy Verified 08/17/22 09:14 Mental Status Exam Mental Status Exam Narrative: Alert but not oriented to situation. Well groomed, good hygiene, normal body habitus, hospital attire. Poor eye contact, inattentive, insisting on standing. No Tics or Tremors. No abnormal involuntary movements. Calm, somewhat guarded, difficult to engage. Non-pressured speech, spontaneous with regular rate and rhythm, normal volume and prosody. No prolonged speech latency or dysarthria. Mood is ?depressed,? affect is incongruent. Denies SI/SIB/HI upon inquiry. Endorses AH, denies VH, hx of paranoid delusional thought content. Appears internally preoccupied. No known cognitive or memory impairment. Insight/ Judgment limited. Assessment & Plan Assessment & Plan (1) Schizoaffective disorder, bipolar type: Status: Acute Code(s): F25.0 - Schizoaffective disorder, bipolar type Plan Lin is a 32 y.o. female who carries a dx of schizoaffective disorder, bipolar type. She [place] [facility] [place] after her mother called crisis due to making delusional statements i.e. saying she is part of the [place] and speaking to her brother. She told crisis she has technology throughout her body, that she is friends with Leeann Faria and talks to her daily, laughing incongruently during assessment. She has not been sleeping x a few days. Impaired functioning i.e. leaves food on stove too long. Per pt?s mom, her sx have been worse x 2 weeks but have been ongoing x 3 yrs after her brother was murdered. Plan: Start olanzapine 5 mg HS for psychotic sx, increase as tolerated. Pt appears naive to antipsychotic medication. Pt asks for melatonin. Q15 min safety checks, CV Monitor response to medications. Monitor for safety in the milieu. Discharge on stabilization. Patient seen. Chart reviewed. Discussed with team. Obtain collateral contact info?as needed Patient educated on: diagnosis, medication risk/benefits and therapeutic strategies Reason for continued inpatient stay Substantial Risk for: inability to function, rapid decompensation and med/psych decompensation
--- NOTE | 2022-08-18 17:55 | PC.ADMIT ---
Patient is a 32y/o faroese speaking female admitted from the [facility] ED. The pt was referred by KONRAD to the hospital after her mother reported bizarre behavior such as, paranoia,believing the [facility] has planted technology in her body. She also believes people have been tracking her. She States, I know Leeann Faria and other celebrities and speaks to the daily. Pt's affect is flat, mood anxious and guarded, with quiet speech. Pt appeared distracted and preoccupied during interview. Pt was admitted on a CV, Unspecified Schizophrenia Spectrum and Unspecified Anxiety d/o. Pt denies any medical conditions. Pt denies AH/VH/HI, but reports these delusions are what stresses her out and interferes with her sleep and eating. Pt verbalizes that if my sleep could get better, I would be better . Pt denies medications, but it appears she was recently on Celexa. Mother reports that patient hasn't slept in days and here appetite has been poor. Her mother also reports that her daughter has been going to the park to talk to her brother. Pt had low tolerance for interview and requested to finish tomorrow.
[2022-08-18 20:30] VITALS: BP 103/70; PULSE 107; RESP 16; TEMP 36.7; O2SAT 98
[2022-08-18] MEDS: OLANZapine 5 MG TABLET PO (21:12)
[2022-08-19 09:02] LABS: Estimated Average Glucose 103 mg/dL; Hemoglobin A1c % 5.2 %
[2022-08-19 09:34] VITALS: BP 104/74; PULSE 83; RESP 16; TEMP 36.6; O2SAT 100
[2022-08-19 09:54] LABS: Cholesterol 155 mg/dL; HDL Cholesterol 51 mg/dL; LDL Cholesterol Calculated 90 mg/dl; Triglycerides 70 mg/dL
[2022-08-19 10:19] LABS: Free T4 (Free Thyroxine) 1.34 ng/dL (0.71-1.85); Thyroid Stimulating Hormone 2.29 uIU/mL (0.32-4.0)
--- NOTE | 2022-08-19 14:46 | P.PNPSI_ITS ---
Subjective Subjective Date of Service: 08/19/22 Reason For Visit: Psychosis Interim History: pt found in her room. flat, cooperative to a point. initially agrees to come with MD to interview room for discussion, but halts in the [facility] there. states she wants to discharge, repeatedly, arguing her point. states she is feeling better and would be better served being treated in her home. MD informs pt that is the next step after leaving the hospital but that we need to keep her here several days to ensure she is sleeping well and her improvements are sustained. later, pt's mother visits per pt request and MD is asked to join them, which he does, to answer mother's questions. pt and mother informed pt likely to be here 1-2 weeks, nature of illness and Tx reviewed. per staff, pt signed CV. psychotic. c/o insomnia. no sleep for several days prior to admission. appeared to sleep overnight. Mental Status Exam Mental Status Exam Narrative: Alert. Well groomed, good hygiene, normal body habitus, street clothes. good eye contact, attentive, holding interview in the middle of [place]. No Tics or Tremors. No abnormal involuntary movements. Calm, guarded, difficult to engage. Non-pressured speech, spontaneous with regular rate and rhythm, normal volume and prosody. No prolonged speech latency or dysarthria. Mood is ?better,? affect is flat. no SI/HI/AVH expressed. Appears internally preoccupied. No known cognitive or memory impairment. Insight/ Judgment limited. Diagnostics Vital Signs (24Hr): Vital Signs - 24 hr 08/18/22 16:56 08/18/22 20:30 08/19/22 09:34 Temperature 97.9 F 98.1 F 97.9 F Pulse Rate 106 H 107 H 83 Respiratory Rate 15 16 16 Blood Pressure 113/80 103/70 104/74 Pulse Oximetry 99 98 100 Oxygen Delivery Method Room Air Room Air Room Air BMI result Body Mass Index 22.3 Labs Results: 08/17/22 09:56 08/17/22 09:56 Labs: Laboratory Results - last 48 hr 08/19/22 08/19/22 08:34 08:34 Estimat Average Glucose 103 Hemoglobin A1c % 5.2 Magnesium 2.0 Triglycerides 70 Cholesterol 155 LDL Cholesterol, Calc 90 HDL Cholesterol 51 TSH 2.29 Free T4 1.34 Medications Medications Current Medications Acetaminophen (Acetaminophen 325 Mg Tablet) 650 mg PO Q6H PRN PRN Reason: Headache/Pain Mild Scale (1-3) Al Hydroxide/Mg Hydroxide (Magnesium Hydrox/Alum Hydrox 30 Ml Oral.Susp) 30 ml PO Q6H PRN PRN Reason: Heartburn/Nausea Hydroxyzine HCl (Hydroxyzine Hcl 25 Mg Tablet) 25 mg PO Q6H PRN PRN Reason: Anxiety Lorazepam (Lorazepam 1 Mg Tablet) 1 mg PO Q6H PRN PRN Reason: agitation Magnesium Hydroxide (Milk Of Magnesia 30 Ml Oral.Susp) 30 ml PO DAILY PRN PRN Reason: Constipation Melatonin (Melatonin 3 Mg Tablet) 3 mg PO BEDTIME PRN PRN Reason: insomnia Olanzapine (Olanzapine 5 Mg Tablet) 5 mg PO BEDTIME RADHA Last Admin: 08/18/22 21:12 Dose: 5 mg Trazodone HCl (Trazodone Hcl 50 Mg Tablet) 50 mg PO BEDTIME PRN PRN Reason: Insomnia Allergies Allergies Allergy/AdvReac Type Severity Reaction Status Date / Time No Known Allergies Allergy Verified 08/17/22 09:14 Assessment & Plan Assessment & Plan (1) Schizoaffective disorder, bipolar type: Status: Acute Code(s): F25.0 - Schizoaffective disorder, bipolar type Plan Lin is a 32 y.o. female who carries a dx of schizoaffective disorder, bipolar type. She presented to [facility] on 08/17/22 after her mother called crisis due to making delusional statements i.e. saying she is part of the [place] and speaking to her brother. She told crisis she has technology throughout her body, that she is friends with Leeann Faria and talks to her daily, laughing incongruently during assessment. She has not been sleeping x a few days. Impaired functioning i.e. leaves food on stove too long. Per pt?s mom, her sx have been worse x 2 weeks but have been ongoing x 3 yrs after her brother was murdered. 08/18: Started olanzapine 5 mg HS for psychotic sx, increase as tolerated. Pt appears naive to antipsychotic medication. Pt asks for melatonin. 08/19: slept well last night on zyprexa 5. guarded, flat, appears internally preoccupied. met with pt and her mother. I spent __35____ minutes with the patient and/or on the patient floor today, greater than?50% of which was spent counseling/coordinating care. Patient educated on: diagnosis and medication risk/benefits Guardian/Caregiver educated on: diagnosis and medication risk/benefits Reason for contiued inpatient stay Substantial Risk for: inability to function and rapid decompensation
[2022-08-19 16:03] LABS: Vitamin B12 506 pg/mL (200-900)
[2022-08-19 16:04] LABS: Folate 14.9 ng/mL (> or = 4.0)
[2022-08-19 20:30] VITALS: BP 123/91; PULSE 95; TEMP 36.5; O2SAT 100
[2022-08-19] MEDS: OLANZapine 5 MG TABLET PO (22:25)
[2022-08-20 06:00] VITALS: BP 99/60; PULSE 78; RESP 16; TEMP 36.6; O2SAT 94
[2022-08-20] MEDS: Milk of Magnesia 30 ML ORAL.SUSP PO (08:57)
--- NOTE | 2022-08-20 15:00 | HO.PSYCHPN ---
Subjective Subjective Date of Service: 08/20/22 Reason For Visit: Psychosis Interim History: paranoid, bizarre. seen with mother initially, then alone. mother reported pt is talking to her about her mentor, leeann rowell. pt agrees to come speak with MD after, but stands by the door and does not sit down. she appears blank, then says she needs to leave. MD asks why, she replies it is an emergency and that she will come back after. she then quickly exits the room and does not return. per staff, pt showering every few hours. reporting AH, does not report content. laughing to herself, sleeping adequately. no SI/HI. Mental Status Exam Mental Status Exam Narrative: Alert. Well groomed, good hygiene, normal body habitus, street clothes. good eye contact, difficulty attending. No Tics or Tremors. No abnormal involuntary movements. Calm, guarded, difficult to engage. Non-pressured speech, non-spontaneous with regular rate and rhythm, normal volume and prosody. + speech latency, no dysarthria. Mood is not assessed, affect is flat. no SI/HI/AVH expressed. Appears internally preoccupied. No known cognitive or memory impairment. Insight/ Judgment limited. Diagnostics Vital Signs (24Hr): Vital Signs - 24 hr 08/19/22 20:30 08/20/22 06:00 Temperature 97.7 F 97.8 F Pulse Rate 95 78 Respiratory Rate 16 Blood Pressure 123/91 H 99/60 Pulse Oximetry 100 94 Oxygen Delivery Method Room Air Room Air BMI result Body Mass Index 22.3 Labs Results: 08/17/22 09:56 08/17/22 09:56 Labs: Laboratory Results - last 48 hr 08/19/22 08/19/22 08/19/22 08:34 08:34 08:34 Estimat Average Glucose 103 Hemoglobin A1c % 5.2 Magnesium 2.0 Triglycerides 70 Cholesterol 155 LDL Cholesterol, Calc 90 HDL Cholesterol 51 Vitamin B12 506 Folate 14.9 TSH 2.29 Free T4 1.34 Medications Medications Current Medications Acetaminophen (Acetaminophen 325 Mg Tablet) 650 mg PO Q6H PRN PRN Reason: Headache/Pain Mild Scale (1-3) Al Hydroxide/Mg Hydroxide (Magnesium Hydrox/Alum Hydrox 30 Ml Oral.Susp) 30 ml PO Q6H PRN PRN Reason: Heartburn/Nausea Hydroxyzine HCl (Hydroxyzine Hcl 25 Mg Tablet) 25 mg PO Q6H PRN PRN Reason: Anxiety Lorazepam (Lorazepam 1 Mg Tablet) 1 mg PO Q6H PRN PRN Reason: agitation Magnesium Hydroxide (Milk Of Magnesia 30 Ml Oral.Susp) 30 ml PO DAILY PRN PRN Reason: Constipation Last Admin: 08/20/22 08:57 Dose: 30 ml Melatonin (Melatonin 3 Mg Tablet) 3 mg PO BEDTIME PRN PRN Reason: insomnia Olanzapine (Olanzapine 5 Mg Tablet) 5 mg PO BEDTIME RADHA Last Admin: 08/19/22 22:25 Dose: 5 mg Trazodone HCl (Trazodone Hcl 50 Mg Tablet) 50 mg PO BEDTIME PRN PRN Reason: Insomnia Allergies Allergies Allergy/AdvReac Type Severity Reaction Status Date / Time No Known Allergies Allergy Verified 08/17/22 09:14 Assessment & Plan Assessment & Plan (1) Schizoaffective disorder, bipolar type: Status: Acute Code(s): F25.0 - Schizoaffective disorder, bipolar type Plan Lin is a 32 y.o. female who carries a dx of schizoaffective disorder, bipolar type. She presented to [facility] on 08/17/22 after her mother called crisis due to making delusional statements i.e. saying she is part of the [place] and speaking to her brother. She told crisis she has technology throughout her body, that she is friends with Leeann Rowell and talks to her daily, laughing incongruently during assessment. She has not been sleeping x a few days. Impaired functioning i.e. leaves food on stove too long. Per pt?s mom, her sx have been worse x 2 weeks but have been ongoing x 3 yrs after her brother was murdered. 08/18: Started olanzapine 5 mg HS for psychotic sx, increase as tolerated. Pt appears naive to antipsychotic medication. Pt asks for melatonin. 08/19: slept well last night on zyprexa 5. guarded, flat, appears internally preoccupied. met with pt and her mother. 08/20: increase HS zyprexa to 10 mg and make ODT to ensure compliance. no change in Sx. I spent ___25___ minutes with the patient and/or on the patient floor today, greater than?50% of which was spent counseling/coordinating care. Reason for contiued inpatient stay Substantial Risk for: inability to function and rapid decompensation
[2022-08-20 23:00] VITALS: BP 127/85; PULSE 77; TEMP 36.7; O2SAT 99
[2022-08-20] MEDS: OLANZapine ODT 10 MG TAB.RAPDIS TRANSLINGU (23:10)
[2022-08-21 07:00] VITALS: BMI 21.8
[2022-08-21 08:45] VITALS: BP 126/83; PULSE 101; RESP 20; TEMP 36.2; O2SAT 99
--- NOTE | 2022-08-21 13:29 | P.PNPSI_ITS ---
Subjective Subjective Date of Service: 08/21/22 Reason For Visit: Psychosis Interim History: calm, cooperative, in initially. comes to sensory room for interview, states she is anxious and depressed. reports she slept ok. denies any difference in her experience with zyprexa 5 versus 10. shortly says, i want to leave now, standing. MD asks if there is any particular reason, and she replies, i'm anxious, and then exits the room. per staff, moderate anxiety and depression r eported. not atending groups. endorsing AH. pacing. denies SI/HI. taking long showers. laughing to self. poor sleep 2/2 MNA reported. asking for her own room. Mental Status Exam Mental Status Exam Narrative: Alert. Well groomed, good hygiene, normal body habitus, street clothes. good eye contact, difficulty attending. No Tics or Tremors. No abnormal involuntary movements. Calm, guarded, difficult to engage. Non-pressured speech, non- spontaneous with regular rate and rhythm, normal volume and flattened prosody. + speech latency, no dysarthria. Mood is anxious and depressed. affect is flat. no SI/HI/AVH expressed. Appears internally preoccupied. No known cognitive or memory impairment. Insight/ Judgment limited. Diagnostics Vital Signs (24Hr): Vital Signs - 24 hr 08/20/22 23:00 08/21/22 08:45 Temperature 98.0 F 97.1 F Pulse Rate 77 101 H Respiratory Rate 20 Blood Pressure 127/85 126/83 Pulse Oximetry 99 99 Oxygen Delivery Method Room Air Room Air BMI result Body Mass Index 21.8 Labs Results: 08/17/22 09:56 08/17/22 09:56 Labs: Laboratory Results - last 48 hr 08/19/22 08:34 Vitamin B12 506 Folate 14.9 Medications Medications Current Medications Acetaminophen (Acetaminophen 325 Mg Tablet) 650 mg PO Q6H PRN PRN Reason: Headache/Pain Mild Scale (1-3) Al Hydroxide/Mg Hydroxide (Magnesium Hydrox/Alum Hydrox 30 Ml Oral.Susp) 30 ml PO Q6H PRN PRN Reason: Heartburn/Nausea Hydroxyzine HCl (Hydroxyzine Hcl 25 Mg Tablet) 25 mg PO Q6H PRN PRN Reason: Anxiety Lorazepam (Lorazepam 1 Mg Tablet) 1 mg PO Q6H PRN PRN Reason: agitation Magnesium Hydroxide (Milk Of Magnesia 30 Ml Oral.Susp) 30 ml PO DAILY PRN PRN Reason: Constipation Last Admin: 08/20/22 08:57 Dose: 30 ml Melatonin (Melatonin 3 Mg Tablet) 3 mg PO BEDTIME PRN PRN Reason: insomnia Olanzapine (Olanzapine Odt 10 Mg Tab.Rapdis) 10 mg TRANSLINGU BEDTIME RADHA Last Admin: 08/20/22 23:10 Dose: 10 mg Trazodone HCl (Trazodone Hcl 50 Mg Tablet) 50 mg PO BEDTIME PRN PRN Reason: Insomnia Allergies Allergies Allergy/AdvReac Type Severity Reaction Status Date / Time No Known Allergies Allergy Verified 08/17/22 09:14 Assessment & Plan Assessment & Plan (1) Schizoaffective disorder, bipolar type: Status: Acute Code(s): F25.0 - Schizoaffective disorder, bipolar type Plan Lin is a 32 y.o. female who carries a dx of schizoaffective disorder, bipolar type. She presented [place] [facility] [place] on [place]17[place]22 after her mother called crisis due to making delusional statements i.e. saying she is part of the [place] and speaking to her brother. She told crisis she has technology throughout her body, that she is friends with Leeann Faria and talks to her daily, laughing incongruently during assessment. She has not been sleeping x a few days. Impaired functioning i.e. leaves food on stove too long. Per pt?s mom, her sx have been worse x 2 weeks but have been ongoing x 3 yrs after her brother was murdered. 08/18: Started olanzapine 5 mg HS for psychotic sx, increase as tolerated. Pt appears naive to antipsychotic medication. Pt asks for melatonin. 08/19: slept well last night on zyprexa 5. guarded, flat, appears internally preoccupied. met with pt and her mother. 08/20: increase HS zyprexa to 10 mg and make ODT to ensure compliance. no change in Sx. 08/21: disrupted sleep on zyprexa 10 mg at HS, denies feeling any different from 5 mg to 10 mg. psychosis continues. add lithium 450 BID to target what inc reasingly appears to be mixed manic state. I spent ___25___ minutes with the patient and/or on the patient floor today, greater than?50% of which was spent counseling/coordinating care. Reason for contiued inpatient stay Substantial Risk for: inability to function and rapid decompensation
--- NOTE | 2022-08-21 15:06 | PC.NURSE ---
Late entry: Patient given urine cup and educated on process for UA. Later, when checked, patient gave collection cup but it was full of water. Patient states she is unable to void in the cup at this time. Patient appears to be thought blocking, spending significant amount of time in bathroom standing, stretching.
[2022-08-21] MEDS: Acetaminophen 325 MG TABLET 650 MG PO (19:14)
[2022-08-21 19:26] VITALS: BP 124/86; PULSE 103; RESP 18; TEMP 36.6
[2022-08-21 21:53] VITALS: BP 123/91; PULSE 87; RESP 16; TEMP 36.6; O2SAT 97
[2022-08-21] MEDS: OLANZapine ODT 10 MG TAB.RAPDIS TRANSLINGU (21:58)
[2022-08-22] MEDS: Lithium Carbonate ER 450 MG TABLET.ER PO (08:32)
[2022-08-22 08:44] VITALS: BP 118/77; PULSE 87; RESP 17; TEMP 36.6; O2SAT 96
[2022-08-22] MEDS: LORazepam 1 MG TABLET PO (14:08)
--- NOTE | 2022-08-22 14:08 | P.PNPSI_ITS ---
Subjective Subjective Date of Service: 08/22/22 Reason For Visit: Psychosis Interim History: only able to tolerate sitting during interview for a few minutes, stands for the remainder. for the first time, however, she does not very prematurely remove herself from the room. asking about shaving her legs, getting some fresh air, discharge. MD explained rationale for lithium addition, no reaction from patient. per staff, isolative, RIS. c/o worsening anxiety. not attending groups. LUQ pain. feels meds are helping. reporting AH. no SI/HI. refused lithium last night but took it this morning. slept adequately. Mental Status Exam Mental Status Exam Narrative: Alert. Well groomed, good hygiene, normal body habitus, street clothes. good eye contact, difficulty attending. No Tics or Tremors. No abnormal involuntary movements. Calm, guarded, difficult to engage. Non-pressured speech, non- spontaneous with regular rate and rhythm, normal volume and flattened prosody. + speech latency, no dysarthria. Mood is anxious and depressed. affect is flat. no SI/HI/AVH expressed. Appears internally preoccupied. No known cognitive or memory impairment. Insight/ Judgment limited. Diagnostics Vital Signs (24Hr): Vital Signs - 24 hr 08/21/22 19:26 08/21/22 21:53 08/22/22 08:44 Temperature 97.9 F 97.9 F 97.8 F Pulse Rate 103 H 87 87 Respiratory Rate 18 16 17 Blood Pressure 124/86 123/91 H 118/77 Pulse Oximetry 97 96 Oxygen Delivery Method Room Air Room Air BMI result Body Mass Index 21.8 Labs Results: 08/17/22 09:56 08/17/22 09:56 Medications Medications Current Medications Acetaminophen (Acetaminophen 325 Mg Tablet) 650 mg PO Q6H PRN PRN Reason: Headache/Pain Mild Scale (1-3) Last Admin: 08/21/22 19:14 Dose: 650 mg Al Hydroxide/Mg Hydroxide (Magnesium Hydrox/Alum Hydrox 30 Ml Oral.Susp) 30 ml PO Q6H PRN PRN Reason: Heartburn/Nausea Hydroxyzine HCl (Hydroxyzine Hcl 25 Mg Tablet) 25 mg PO Q6H PRN PRN Reason: Anxiety [place] Carbonate ([place] Carbonate Er 450 Mg Tablet.Er) 450 mg PO BID RADHA Last Admin: 08/22/22 08:32 Dose: 450 mg Lorazepam (Lorazepam 1 Mg Tablet) 1 mg PO Q6H PRN PRN Reason: agitation Magnesium Hydroxide (Milk Of Magnesia 30 Ml Oral.Susp) 30 ml PO DAILY PRN PRN Reason: Constipation Last Admin: 08/20/22 08:57 Dose: 30 ml Melatonin (Melatonin 3 Mg Tablet) 3 mg PO BEDTIME PRN PRN Reason: insomnia Olanzapine (Olanzapine Odt 10 Mg Tab.Rapdis) 10 mg TRANSLINGU BEDTIME RADHA Last Admin: 08/21/22 21:58 Dose: 10 mg Trazodone HCl (Trazodone Hcl 50 Mg Tablet) 50 mg PO BEDTIME PRN PRN Reason: Insomnia Allergies Allergies Allergy/AdvReac Type Severity Reaction Status Date / Time No Known Allergies Allergy Verified 08/17/22 09:14 Assessment & Plan Assessment & Plan (1) Schizoaffective disorder, bipolar type: Status: Acute Code(s): F25.0 - Schizoaffective disorder, bipolar type Plan Lin is a 32 y.o. female who carries a dx of schizoaffective disorder, bipolar type. She [place] [facility] [place] after her mother called crisis due to making delusional statements i.e. saying she is part of the [place] and speaking to her brother. She told crisis she has technology throughout her body, that she is friends with Leeann Faria and talks to her daily, laughing incongruently during assessment. She has not been sleeping x a few days. Impaired functioning i.e. leaves food on stove too long. Per pt?s mom, her sx have been worse x 2 weeks but have been ongoing x 3 yrs after her brother was murdered. 08/18: Started olanzapine 5 mg HS for psychotic sx, increase as tolerated. Pt appears naive to antipsychotic medication. Pt asks for melatonin. 08/19: slept well last night on zyprexa 5. guarded, flat, appears internally preoccupied. met with pt and her mother. 08/20: increase HS zyprexa to 10 mg and make ODT to ensure compliance. no change in Sx. 08/21: disrupted sleep on zyprexa 10 mg at HS, denies feeling any different from 5 mg to 10 mg. psychosis continues. add lithium 450 BID to target what increasingly appears to be mixed manic state. 08/22: possibly better sleep last night, but only had zyprexa 10 (refused HS lithium). took lithium this morning. for the first time able to tolerate remaining in interview for more than 3 minutes (in fact, did not excuse herself prematurely at all today). otherwise does not appear to have improved. continue current mgmt, encourage lithium compliance. I spent ___25___ minutes with the patient and/or on the patient floor today, greater than?50% of which was spent counseling/coordinating care. Reason for contiued inpatient stay Substantial Risk for: inability to function and rapid decompensation
[2022-08-22 20:30] VITALS: BP 129/78; PULSE 119; RESP 18; TEMP 36.6; O2SAT 97
--- NOTE | 2022-08-22 23:07 | PC.NURSE ---
Lin refused her HS medications.
--- NOTE | 2022-08-23 01:53 | HO.PSYCHPN ---
Subjective Subjective Date of Service: 08/23/22 Reason For Visit: Psychosis Interim History: Spoke with pt and team. Pt says says ativan helps with anxiety and zyprexa helps with sleep but lithium makes me more dizzy, although she felt okay with AM dose, willing to give it more time. Says she slept okay, 5 hours. When asked about AH, says she sometimes hears them and they are saying things but far away, not really bothering her. Mood is alright. Rates her anxiety as a 6/10, anxious about life. Says she prefers to be alone in her room, isolative. Mental Status Exam Mental Status Exam Narrative: Alert. Well groomed, good hygiene, normal body habitus, street clothes.? good eye contact, difficulty attending.? No Tics or Tremors. No abnormal involuntary movements. Calm, guarded, difficult to engage. Non-pressured speech, non-spontaneous with regular rate and rhythm, normal volume and flattened prosody. + speech latency, no dysarthria. Mood is anxious and depressed. affect is flat. no SI/HI/AVH expressed.? Appears internally preoccupied. No known cognitive or memory impairment. Insight/ Judgment limited. Diagnostics Vital Signs (24Hr): Vital Signs - 24 hr 08/22/22 08:44 08/22/22 20:30 Temperature 97.8 F 98 F Pulse Rate 87 119 H Respiratory Rate 17 18 Blood Pressure 118/77 129/78 Pulse Oximetry 96 97 Oxygen Delivery Method Room Air Room Air BMI result Body Mass Index 21.8 Labs Results: 08/17/22 09:56 08/17/22 09:56 Medications Medications Current Medications Acetaminophen (Acetaminophen 325 Mg Tablet) 650 mg PO Q6H PRN PRN Reason: Headache/Pain Mild Scale (1-3) Last Admin: 08/21/22 19:14 Dose: 650 mg Al Hydroxide/Mg Hydroxide (Magnesium Hydrox/Alum Hydrox 30 Ml Oral.Susp) 30 ml PO Q6H PRN PRN Reason: Heartburn/Nausea Hydroxyzine HCl (Hydroxyzine Hcl 25 Mg Tablet) 25 mg PO Q6H PRN PRN Reason: Anxiety [place] Carbonate ([place] Carbonate Er 450 Mg Tablet.Er) 450 mg PO BID RADHA Last Admin: 08/22/22 22:58 Dose: Not Given Lorazepam (Lorazepam 1 Mg Tablet) 1 mg PO Q6H PRN PRN Reason: agitation Last Admin: 08/22/22 14:08 Dose: 1 mg Magnesium Hydroxide (Milk Of Magnesia 30 Ml Oral.Susp) 30 ml PO DAILY PRN PRN Reason: Constipation Last Admin: 08/20/22 08:57 Dose: 30 ml Melatonin (Melatonin 3 Mg Tablet) 3 mg PO BEDTIME PRN PRN Reason: insomnia Olanzapine (Olanzapine Odt 10 Mg Tab.Rapdis) 10 mg TRANSLINGU BEDTIME RADHA Last Admin: 08/22/22 22:59 Dose: Not Given Trazodone HCl (Trazodone Hcl 50 Mg Tablet) 50 mg PO BEDTIME PRN PRN Reason: Insomnia Allergies Allergies Allergy/AdvReac Type Severity Reaction Status Date / Time No Known Allergies Allergy Verified 08/17/22 09:14 Assessment & Plan Assessment & Plan (1) Schizoaffective disorder, bipolar type: Status: Acute Code(s): F25.0 - Schizoaffective disorder, bipolar type Plan Lin is a 32 y.o. female who carries a dx of schizoaffective disorder, bipolar type. She presented [place] [facility] [place] on [place]22 after her mother called crisis due to making delusional statements i.e. saying she is part of the [place] and speaking to her brother. She told crisis she has technology throughout her body, that she is friends with Leeann Faria and talks to her daily, laughing incongruently during assessment. She has not been sleeping x a few days. Impaired functioning i.e. leaves food on stove too long. Per pt?s mom, her sx have been worse x 2 weeks but have been ongoing x 3 yrs after her brother was murdered. 08/18: Started olanzapine 5 mg HS for psychotic sx, increase as tolerated. Pt appears naive to antipsychotic medication. Pt asks for melatonin. 08/19: slept well last night on zyprexa 5. guarded, flat, appears internally preoccupied. met with pt and her mother. 08/20: increase HS zyprexa to 10 mg and make ODT to ensure compliance. no change in Sx. 08/21: disrupted sleep on zyprexa 10 mg at HS, denies feeling any different from 5 mg to 10 mg. psychosis continues. add lithium 450 BID to target what increasingly appears to be mixed manic state. 08/22: possibly better sleep last night, but only had zyprexa 10 (refused HS lithium). took lithium this morning. for the first time able to tolerate remaining in interview for more than 3 minutes (in fact, did not excuse herself prematurely at all today). otherwise does not appear to have improved. continue current mgmt, encourage lithium compliance. 08/23: No changes to med plan I spent minutes with the patient and/or on the patient floor today, greater than?50% of which was spent counseling/coordinating care. Patient educated on: medication risk/benefits and therapeutic strategies Reason for contiued inpatient stay Substantial Risk for: inability to function, rapid decompensation and med/psych decompensation
[2022-08-23] MEDS: LORazepam 1 MG TABLET PO (04:04)
[2022-08-23 06:00] VITALS: BP 128/82; PULSE 104; RESP 18; TEMP 36.8; O2SAT 98
[2022-08-23] MEDS: Lithium Carbonate ER 450 MG TABLET.ER PO ×2 (08:41→21:36)
[2022-08-23 10:02] LABS: Appearance Urine Turbid; Color Urine Yellow; Glucose Urine UA Negative (Negative); Leukocyte Esterase Urine Negative (Negative); Nitrite Urine Negative (Negative); Urine Blood Negative (Negative); Urine Ketones Negative (Negative); Urine Protein Negative (Neg-Trace)
[2022-08-23 20:13] VITALS: BP 120/83; PULSE 108; RESP 18; TEMP 36.6; O2SAT 99
[2022-08-23] MEDS: OLANZapine ODT 10 MG TAB.RAPDIS TRANSLINGU (21:36)
[2022-08-24 09:49] VITALS: BP 119/74; PULSE 92; RESP 18; TEMP 36.7; O2SAT 96
[2022-08-24] MEDS: Lithium Carbonate ER 450 MG TABLET.ER PO ×2 (10:04→22:56)
--- NOTE | 2022-08-24 14:05 | P.PNPSI_ITS ---
Subjective Subjective Date of Service: 08/24/22 Reason For Visit: Psychosis Interim History: Spoke with team, pt is in behavioral control but isolative, internally preoccupied. Attempted to speak with pt, found in her room at desk staring ahead, says i dont want to talk. Mental Status Exam Mental Status Exam Narrative: Alert. Well groomed, good hygiene, normal body habitus, street clothes.? good eye contact, difficulty attending.? No Tics or Tremors. No abnormal involuntary movements. Calm, guarded, difficult to engage. Non-pressured speech, non- spontaneous with regular rate and rhythm, normal volume and flattened prosody. + speech latency, no dysarthria. Mood is anxious and depressed. affect is flat. no SI/HI/AVH expressed.? Appears internally preoccupied. No known cognitive or memory impairment. Insight/ Judgment limited. Diagnostics Vital Signs (24Hr): Vital Signs - 24 hr 08/23/22 20:13 08/24/22 09:49 Temperature 98 F 98.0 F Pulse Rate 108 H 92 Respiratory Rate 18 18 Blood Pressure 120/83 119/74 Pulse Oximetry 99 96 Oxygen Delivery Method Room Air Room Air BMI result Body Mass Index 21.8 Labs Results: 08/17/22 09:56 08/17/22 09:56 Labs: Laboratory Results - last 48 hr 08/23/22 08:50 Urine Color Yellow Urine Appearance Turbid Urine pH 7.0 Ur Specific [place] 1.020 Urine Protein Negative Urine Glucose (UA) Negative Urine Ketones Negative Urine Blood Negative Urine Nitrite Negative Ur Leukocyte Esterase Negative Medications Medications Current Medications Acetaminophen (Acetaminophen 325 Mg Tablet) 650 mg PO Q6H PRN PRN Reason: Headache/Pain Mild Scale (1-3) Last Admin: 08/21/22 19:14 Dose: 650 mg Al Hydroxide/Mg Hydroxide (Magnesium Hydrox/Alum Hydrox 30 Ml Oral.Susp) 30 ml PO Q6H PRN PRN Reason: Heartburn/Nausea Hydroxyzine HCl (Hydroxyzine Hcl 25 Mg Tablet) 25 mg PO Q6H PRN PRN Reason: Anxiety [place] Carbonate ([place] Carbonate Er 450 Mg Tablet.Er) 450 mg PO BID RADHA Last Admin: 08/24/22 10:04 Dose: 450 mg Lorazepam (Lorazepam 1 Mg Tablet) 1 mg PO Q6H PRN PRN Reason: agitation Last Admin: 08/23/22 04:04 Dose: 1 mg Magnesium Hydroxide (Milk Of Magnesia 30 Ml Oral.Susp) 30 ml PO DAILY PRN PRN Reason: Constipation Last Admin: 08/20/22 08:57 Dose: 30 ml Melatonin (Melatonin 3 Mg Tablet) 3 mg PO BEDTIME PRN PRN Reason: insomnia Olanzapine (Olanzapine Odt 10 Mg Tab.Rapdis) 10 mg TRANSLINGU BEDTIME RADHA Last Admin: 08/23/22 21:36 Dose: 10 mg Trazodone HCl (Trazodone Hcl 50 Mg Tablet) 50 mg PO BEDTIME PRN PRN Reason: Insomnia Allergies Allergies Allergy/AdvReac Type Severity Reaction Status Date / Time No Known Allergies Allergy Verified 08/17/22 09:14 Assessment & Plan Assessment & Plan (1) Schizoaffective disorder, bipolar type: Status: Acute Code(s): F25.0 - Schizoaffective disorder, bipolar type Plan Lin is a 32 y.o. female who carries a dx of schizoaffective disorder, bipo lar type. She presented to [facility] [place] on 08/17/22 after her mother called crisis due to making delusional statements i.e. saying she is part of the [place] and speaking to her brother. She told crisis she has technology throughout her body, that she is friends with Leeann Bienvenido and talks to her daily, laughing incongruently during assessment. She has not been sleeping x a few days. Impaired functioning i.e. leaves food on stove too long. Per pt?s mom, her sx have been worse x 2 weeks but have been ongoing x 3 yrs after her brother was murdered. 08/18: Started olanzapine 5 mg HS for psychotic sx, increase as tolerated. Pt appears naive to antipsychotic medication. Pt asks for melatonin. 08/19: slept well last night on zyprexa 5. guarded, flat, appears internally preoccupied. met with pt and her mother. 08/20: increase HS zyprexa to 10 mg and make ODT to ensure compliance. no change in Sx. 08/21: disrupted sleep on zyprexa 10 mg at HS, denies feeling any different from 5 mg to 10 mg. psychosis continues. add lithium 450 BID to target what increasingly appears to be mixed manic state. 08/22: possibly better sleep last night, but only had zyprexa 10 (refused HS lithium). took lithium this morning. for the first time able to tolerate remaining in interview for more than 3 minutes (in fact, did not excuse herself prematurely at all today). otherwise does not appear to have improved. continue current mgmt, encourage lithium compliance. 08/23: No changes to med plan 08/24: No changes to med plan I spent minutes with the patient and/or on the patient floor today, greater than?50% of which was spent counseling/coordinating care. Reason for contiued inpatient stay Substantial Risk for: inability to function, rapid decompensation and med/psych decompensation
[2022-08-24] MEDS: Milk of Magnesia 30 ML ORAL.SUSP PO (18:46)
[2022-08-24 22:56] VITALS: BP 119/82; PULSE 109; RESP 16; TEMP 36.7; O2SAT 99
--- NOTE | 2022-08-25 08:11 | PC.NURSE ---
Patient submitted 3 day notice.
[2022-08-25 09:11] VITALS: BP 126/86; PULSE 103; RESP 16; TEMP 36.6; O2SAT 100
[2022-08-25] MEDS: Lithium Carbonate ER 450 MG TABLET.ER PO (09:13)
[2022-08-25] MEDS: Acetaminophen 325 MG TABLET 650 MG PO (09:13)
--- NOTE | 2022-08-25 13:54 | HO.PSYCHPN ---
Subjective Subjective Date of Service: 08/25/22 Reason For Visit: Psychosis Interim History: pt declines recommended lithium dose increase. seen alone and then with mother. much psycho-ed provided to both about meds and Dx. mother encouraged pt to take meds. 3-day notice in, matures . AVH, anx/dep 7. refused zyprexa last night, was up all night. per report, did not sleep much this weekend; also refused zyprexa thursday night. concern by staff she is cheeking meds. Mental Status Exam Mental Status Exam Narrative: Alert. Well groomed, good hygiene, normal body habitus, street clothes. good eye contact, difficulty attending. No Tics or Tremors. No abnormal involuntary movements. intermittent bizarre smiling, one period of outright laughter (pt unable to reasonably explain what internal events led to her behavior). Calm, guarded, difficult to engage. Non-pressured speech, spontaneous with regular rate and rhythm, normal volume and flattened prosody. + speech latency, no dysarthria. affect is full-range. no SI/HI/AVH expressed. Appears internally preoccupied. No known cognitive or memory impairment. Insight/ Judgment limited. Diagnostics Vital Signs (24Hr): Vital Signs - 24 hr 08/24/22 22:56 08/25/22 09:11 Temperature 98.0 F 97.8 F Pulse Rate 109 H 103 H Respiratory Rate 16 16 Blood Pressure 119/82 126/86 Pulse Oximetry 99 100 Oxygen Delivery Method Room Air Room Air BMI result Body Mass Index 21.8 Labs Results: 08/17/22 09:56 08/17/22 09:56 Medications Medications Current Medications Acetaminophen (Acetaminophen 325 Mg Tablet) 650 mg PO Q6H PRN PRN Reason: Headache/Pain Mild Scale (1-3) Last Admin: 08/25/22 09:13 Dose: 650 mg Al Hydroxide/Mg Hydroxide (Magnesium Hydrox/Alum Hydrox 30 Ml Oral.Susp) 30 ml PO Q6H PRN PRN Reason: Heartburn/Nausea Hydroxyzine HCl (Hydroxyzine Hcl 25 Mg Tablet) 25 mg PO Q6H PRN PRN Reason: Anxiety [place] Carbonate ([place] Carbonate Er 450 Mg Tablet.Er) 450 mg PO BID RADHA Last Admin: 08/25/22 09:13 Dose: 450 mg Lorazepam (Lorazepam 1 Mg Tablet) 1 mg PO Q6H PRN PRN Reason: agitation Last Admin: 08/23/22 04:04 Dose: 1 mg Magnesium Hydroxide (Milk Of Magnesia 30 Ml Oral.Susp) 30 ml PO DAILY PRN PRN Reason: Constipation Last Admin: 08/24/22 18:46 Dose: 30 ml Melatonin (Melatonin 3 Mg Tablet) 3 mg PO BEDTIME PRN PRN Reason: insomnia Olanzapine (Olanzapine Odt 10 Mg Tab.Rapdis) 10 mg TRANSLINGU BEDTIME RADHA Last Admin: 08/24/22 22:56 Dose: Not Given Trazodone HCl (Trazodone Hcl 50 Mg Tablet) 50 mg PO BEDTIME PRN PRN Reason: Insomnia Allergies Allergies Allergy/AdvReac Type Severity Reaction Status Date / Time No Known Allergies Allergy Verified 08/17/22 09:14 Assessment & Plan Assessment & Plan (1) Schizoaffective disorder, bipolar type: Status: Acute Code(s): F25.0 - Schizoaffective disorder, bipolar type Plan Lin is a 32 y.o. female who carries a dx of schizoaffective disorder, bipolar type. She presented to [facility] [place] on 08/17/22 after her mother called crisis due to making delusional statements i.e. saying she is part of the [place] and speaking to her brother. She told crisis she has technology throughout her body, that she is friends with Leeann Faria and talks to her daily, laughing incongruently during assessment. She has not been sleeping x a few days. Impaired functioning i.e. leaves food on stove too long. Per pt?s mom, her sx have been worse x 2 weeks but have been ongoing x 3 yrs after her brother was murdered. 08/18: Started olanzapine 5 mg HS for psychotic sx, increase as tolerated. Pt appears naive to antipsychotic medication. Pt asks for melatonin. 08/19: slept well last night on zyprexa 5. guarded, flat, appears internally preoccupied. met with pt and her mother. 08/20: increase HS zyprexa to 10 mg and make ODT to ensure compliance. no change in Sx. 08/21: disrupted sleep on zyprexa 10 mg at HS, denies feeling any different from 5 mg to 10 mg. psychosis continues. add lithium 450 BID to target what increasingly appears to be mixed manic state. 08/22: possibly better sleep last night, but only had zyprexa 10 (refused HS lithium). took lithium this morning. for the first time able to tolerate remaining in interview for more than 3 minutes (in fact, did not excuse herself prematurely at all today). otherwise does not appear to have improved. continue current mgmt, encourage lithium compliance. 08/23: No changes to med plan 08/24: No changes to med plan 08/25: declined increase in lithium. has taken zyprexa only every other night, agrees to take it tonight as when she doesn't take it she does not sleep at all. concerned lithium is making her dizzy. psycho-ed provided to pt and mother. I spent __35____ minutes with the patient and/or on the patient floor today, greater than?50% of which was spent counseling/coordinating care. Patient educated on: diagnosis and medication risk/benefits Guardian/Caregiver educated on: diagnosis and medication risk/benefits Reason for contiued inpatient stay Substantial Risk for: inability to function and rapid decompensation
[2022-08-25 19:08] VITALS: BP 112/83; PULSE 98; RESP 16; TEMP 36.5; O2SAT 99
[2022-08-25] MEDS: OLANZapine ODT 10 MG TAB.RAPDIS TRANSLINGU (20:20)
[2022-08-26] MEDS: Lithium Carbonate ER 450 MG TABLET.ER PO (08:54)
[2022-08-26 08:56] VITALS: BP 131/90; PULSE 102; RESP 16; TEMP 36.6; O2SAT 97
--- NOTE | 2022-08-26 15:51 | HO.PSYCHPN ---
Subjective Subjective Date of Service: 08/26/22 Reason For Visit: Psychosis Interim History: found in her bathroom in her room, as per usual when MD finds her in her room. asking MD to tell her the Sx he is seeing in her, asking if she can leave today. MD declines, encourages her to take both lithium and zyprexa, says she will be discharged 08/28, when her 3-day notice matures. per staff, 3-day up 08/28. reporting AH, now of one voice. stated to staff, they are watching me on TV. +RIS. often nodding to herself. refused lithium but accepted zyprexa. slept well. Mental Status Exam Mental Status Exam Narrative: Alert. Well groomed, good hygiene, normal body habitus, hospital [facility]. good eye contact, difficulty attending. No Tics or Tremors. No abnormal involuntary movements. intermittent bizarre smiling. Calm, guarded, difficult to engage. Non-pressured speech, spontaneous with regular rate and rhythm, normal volume and flattened prosody. + speech latency, no dysarthria. affect is full-range. no SI/HI/AVH expressed. Appears internally preoccupied. No known cognitive or memory impairment. Insight/ Judgment limited. Diagnostics Vital Signs (24Hr): Vital Signs - 24 hr 08/25/22 19:08 08/26/22 08:56 Temperature 97.7 F 97.9 F Pulse Rate 98 102 H Respiratory Rate 16 16 Blood Pressure 112/83 131/90 H Pulse Oximetry 99 97 Oxygen Delivery Method Room Air Room Air BMI result Body Mass Index 21.8 Labs Results: 08/17/22 09:56 08/17/22 09:56 Medications Medications Current Medications Acetaminophen (Acetaminophen 325 Mg Tablet) 650 mg PO Q6H PRN PRN Reason: Headache/Pain Mild Scale (1-3) Last Admin: 08/25/22 09:13 Dose: 650 mg Al Hydroxide/Mg Hydroxide (Magnesium Hydrox/Alum Hydrox 30 Ml Oral.Susp) 30 ml PO Q6H PRN PRN Reason: Heartburn/Nausea Hydroxyzine HCl (Hydroxyzine Hcl 25 Mg Tablet) 25 mg PO Q6H PRN PRN Reason: Anxiety [place] Carbonate ([place] Carbonate Er 450 Mg Tablet.Er) 450 mg PO BID RADHA Last Admin: 08/26/22 08:54 Dose: 450 mg Lorazepam (Lorazepam 1 Mg Tablet) 1 mg PO Q6H PRN PRN Reason: agitation Last Admin: 08/23/22 04:04 Dose: 1 mg Magnesium Hydroxide (Milk Of Magnesia 30 Ml Oral.Susp) 30 ml PO DAILY PRN PRN Reason: Constipation Last Admin: 08/24/22 18:46 Dose: 30 ml Melatonin (Melatonin 3 Mg Tablet) 3 mg PO BEDTIME PRN PRN Reason: insomnia Olanzapine (Olanzapine Odt 10 Mg Tab.Rapdis) 10 mg TRANSLINGU BEDTIME RADHA Last Admin: 08/25/22 20:20 Dose: 10 mg Trazodone HCl (Trazodone Hcl 50 Mg Tablet) 50 mg PO BEDTIME PRN PRN Reason: Insomnia Allergies Allergies Allergy/AdvReac Type Severity Reaction Status Date / Time No Known Allergies Allergy Verified 08/17/22 09:14 Assessment & Plan Assessment & Plan (1) Schizoaffective disorder, bipolar type: Status: Acute Code(s): F25.0 - Schizoaffective disorder, bipolar type Plan Lin is a 32 y.o. female who carries a dx of schizoaffective disorder, bipolar type. She [place] [facility] after her mother called crisis due to making delusional statements i.e. saying she is part of the [place] and speaking to her brother. She told crisis she has technology throughout her body, that she is friends with Leeann Faria and talks to her daily, laughing incongruently during assessment. She has not been sleeping x a few days. Impaired functioning i.e. leaves food on stove too long. Per pt?s mom, her sx have been worse x 2 weeks but have been ongoing x 3 yrs after her brother was murdered. 08/18: Started olanzapine 5 mg HS for psychotic sx, increase as tolerated. Pt appears naive to antipsychotic medication. Pt asks for melatonin. 08/19: slept well last night on zyprexa 5. guarded, flat, appears internally preoccupied. met with pt and her mother. 08/20: increase HS zyprexa to 10 mg and make ODT to ensure compliance. no change in Sx. 08/21: disrupted sleep on zyprexa 10 mg at HS, denies feeling any different from 5 mg to 10 mg. psychosis continues. add lithium 450 BID to target what increasingly appears to be mixed manic state. 08/22: possibly better sleep last night, but only had zyprexa 10 (refused HS lithium). took lithium this morning. for the first time able to tolerate remaining in interview for more than 3 minutes (in fact, did not excuse herself prematurely at all today). otherwise does not appear to have improved. continue current mgmt, encourage lithium compliance. 08/23: No changes to med plan 08/24: No changes to med plan 08/25: declined increase in lithium. has taken zyprexa only every other night, agrees to take it tonight as when she doesn't take it she does not sleep at all. concerned lithium is making her dizzy. psycho-ed provided to pt and mother. 08/26: refusing lithium, took zyprexa last night. pt encouraged to take both medications. planning for discharge , on expiry of 3-day notice. I spent __20____ minutes with the patient and/or on the patient floor today, greater than?50% of which was spent counseling/coordinating care. Reason for contiued inpatient stay Substantial Risk for: inability to function and rapid decompensation
[2022-08-26 21:00] VITALS: BP 110/79; PULSE 104; RESP 16; TEMP 36.6; O2SAT 16
[2022-08-26] MEDS: OLANZapine ODT 10 MG TAB.RAPDIS TRANSLINGU (21:27)
[2022-08-26] MEDS: LORazepam 1 MG TABLET PO (21:32)
[2022-08-27 06:00] VITALS: BP 116/74; PULSE 104; RESP 18; TEMP 36.6; O2SAT 97
[2022-08-27] MEDS: LORazepam 1 MG TABLET PO (08:57)
--- NOTE | 2022-08-27 14:05 | HO.PSYCHPN ---
Subjective Subjective Date of Service: 08/27/22 Reason For Visit: Psychosis Interim History: pt comes to the hallway for discussion. soft spoken. asking if she can go today. unable to explain why no lithium, asks again what it is for. explains. states she slept well last night on zyprexa and ativan. notes pt is discharging tomorrow and so ativan will need to be tapered/DCed before then. rationale explained to pt. pt with bizarre affect, delays, quizzical smiling. encouraged to take lithium, informed she will be discharged tomorrow, at maturation of her 3-day notice. per staff, 3-day up tomorrow. c/o poor sleep. refusing lithium. taking zyprexa. RIS, laughing to self. not attending groups. denies SI/HI. endorses AH, saying they are positive: she is going to do good things. Mental Status Exam Mental Status Exam Narrative: Alert. Well groomed, good hygiene, normal body habitus, street clothes. fair eye contact, difficulty attending. No Tics or Tremors. No abnormal involuntary movements. intermittent bizarre smiling, one period of laughter. Calm, guarded, difficult to engage. Non-pressured speech, spontaneous with regular rate and rhythm, decreased amount and loudness, flattened prosody. + speech latency, no dysarthria. affect is full-range, bizarre, untethered from environmental cues/events. no SI/HI/AVH expressed. Appears internally preoccupied. No known cognitive or memory impairment. Insight/ Judgment limited. Diagnostics Vital Signs (24Hr): Vital Signs - 24 hr 08/26/22 21:00 08/27/22 06:00 Temperature 97.9 F 97.9 F Pulse Rate 104 H 104 H Respiratory Rate 16 18 Blood Pressure 110/79 116/74 Pulse Oximetry 16 L 97 Oxygen Delivery Method Room Air Room Air BMI result Body Mass Index 21.8 Labs Results: 08/17/22 09:56 08/17/22 09:56 Medications Medications Current Medications Acetaminophen (Acetaminophen 325 Mg Tablet) 650 mg PO Q6H PRN PRN Reason: Headache/Pain Mild Scale (1-3) Last Admin: 08/25/22 09:13 Dose: 650 mg Al Hydroxide/Mg Hydroxide (Magnesium Hydrox/Alum Hydrox 30 Ml Oral.Susp) 30 ml PO Q6H PRN PRN Reason: Heartburn/Nausea Hydroxyzine HCl (Hydroxyzine Hcl 25 Mg Tablet) 25 mg PO Q6H PRN PRN Reason: Anxiety [place] Carbonate ([place] Carbonate Er 450 Mg Tablet.Er) 450 mg PO BID RADHA Last Admin: 08/27/22 10:03 Dose: Not Given Lorazepam (Lorazepam 1 Mg Tablet) 1 mg PO Q6H PRN PRN Reason: agitation Last Admin: 08/27/22 08:57 Dose: 1 mg Magnesium Hydroxide (Milk Of Magnesia 30 Ml Oral.Susp) 30 ml PO DAILY PRN PRN Reason: Constipation Last Admin: 08/24/22 18:46 Dose: 30 ml Melatonin (Melatonin 3 Mg Tablet) 3 mg PO BEDTIME PRN PRN Reason: insomnia Olanzapine (Olanzapine Odt 10 Mg Tab.Rapdis) 10 mg TRANSLINGU BEDTIME RADHA Last Admin: 08/26/22 21:27 Dose: 10 mg Trazodone HCl (Trazodone Hcl 50 Mg Tablet) 50 mg PO BEDTIME PRN PRN Reason: Insomnia Allergies Allergies Allergy/AdvReac Type Severity Reaction Status Date / Time No Known Allergies Allergy Verified 08/17/22 09:14 Assessment & Plan Assessment & Plan (1) Schizoaffective disorder, bipolar type: Status: Acute Code(s): F25.0 - Schizoaffective disorder, bipolar type Plan Lin is a 32 y.o. female who carries a dx of schizoaffective disorder, bipolar type. She presented [place] [facility] [place] on [place]17/22 after her mother called crisis due to making delusional statements i.e. saying she is part of the [place] and speaking to her brother. She told crisis she has technology throughout her body, that she is friends with Leeann Faria and talks to her daily, laughing incongruently during assessment. She has not been sleeping x a few days. Impaired functioning i.e. leaves food on stove too long. Per pt?s mom, her sx have been worse x 2 weeks but have been ongoing x 3 yrs after her brother was murdered. 08/18: Started olanzapine 5 mg HS for psychotic sx, increase as tolerated. Pt appears naive to antipsychotic medication. Pt asks for melatonin. 11/29: slept well last night on zyprexa 5. guarded, flat, appears internally preoccupied. met with pt and her mother. 08/20: increase HS zyprexa to 10 mg and make ODT to ensure compliance. no change in Sx. 08/21: disrupted sleep on zyprexa 10 mg at HS, denies feeling any different from 5 mg to 10 mg. psychosis continues. add lithium 450 BID to target what increasingly appears to be mixed manic state. 08/22: possibly better sleep last night, but only had zyprexa 10 (refused HS lithium). took lithium this morning. for the first time able to tolerate remaining in interview for more than 3 minutes (in fact, did not excuse herself prematurely at all today). otherwise does not appear to have improved. continue current mgmt, encourage lithium compliance. 08/23: No changes to med plan 08/24: No changes to med plan 08/25: declined increase in lithium. has taken zyprexa only every other night, agrees to take it tonight as when she doesn't take it she does not sleep at all. concerned lithium is making her dizzy. psycho-ed provided to pt and mother. 08/26: refusing lithium, took zyprexa last night. pt encouraged to take both medications. planning for discharge , on expiry of 3-day notice. 08/27: no change from yesterday. D/C tomorrow. DC ativan today. I spent ___20___ minutes with the patient and/or on the patient floor today, greater than?50% of which was spent counseling/coordinating care. Reason for contiued inpatient stay Substantial Risk for: inability to function and rapid decompensation
[2022-08-27] MEDS: OLANZapine ODT 10 MG TAB.RAPDIS TRANSLINGU (20:24)
[2022-08-27 20:27] VITALS: BP 113/78; PULSE 100; RESP 16; TEMP 36.7; O2SAT 98
[2022-08-28 08:12] VITALS: BP 112/72; PULSE 94; TEMP 36.6; O2SAT 99
[2022-08-28] MEDS: Lithium Carbonate ER 450 MG TABLET.ER PO (08:15)
--- NOTE | 2022-08-28 10:52 | P.DS_ITS ---
DS: Providers Provider Date of Service: 08/28/22 Date of admission: 08/18/22 16:26 Primary care physician: Leon Grande PA-C DS: Diagnosis Discharge Diagnosis (1) Schizoaffective disorder, bipolar type: Status: Acute DS: Medications Discharge Medications Home Medications: Previous Rx's Medication Instructions Recorded lithium carbonate 450 mg 450 mg PO BID 30 days #60 tabs 08/28/22 tablet,extended release olanzapine 10 mg tablet 10 mg PO BEDTIME 30 days #30 tabs 08/28/22 Mental Status Exam Mental Status Exam Narrative: Alert. Well groomed, good hygiene, normal body habitus, street clothes. fair eye contact, difficulty attending. No Tics or Tremors. No abnormal involuntary movements. intermittent bizarre smiling, one period of laughter. Calm, guarded, difficult to engage. Non-pressured speech, spontaneous with regular rate and rhythm, decreased amount and loudness, flattened prosody. + speech latency, no dysarthria. affect is full-range, bizarre, untethered from environmental cues/events. mood great. no SI/HI/AVH. Appears internally preoccupied. No known cognitive or memory impairment. Insight/ Judgment limited. Data Data Completed and Pending Completed studies during hospitalization [Text1]: 08/23/22 08:50 Urine Color Yellow Urine Appearance Turbid Urine pH 7.0 Ur Specific [place] 1.020 Urine Protein Negative Urine Glucose (UA) Negative Urine Ketones Negative Urine Blood Negative Urine Nitrite Negative Ur Leukocyte Esterase Negative DS: Summary Hospital Course Hospital Course: per 08/18 admission note: Lin is a 32 y.o. female who carries a dx of schizoaffective disorder, bipolar type. She presented to [facility] [place] on 08/17/22 after her mother called crisis due to making delusional statements i.e. saying she is part of the [place]AN[place] and speaking to her brother. She told crisis she has technology throughout her body, that she is friends with Leeann Bienvenido and talks to her daily, laughing incongruently during assessment. She has not been sleeping x a few days. Impaired functioning i.e. leaves food on stove too long. Per pt?s mom, her sx have been worse x 2 weeks but have been ongoing x 3 yrs after her brother was murdered. Utox negative, No ETOH use. I spoke with pt this evening. She states she wants medication for sleep because her sleep is ?bad.? Says sleep has been poor for months, her daytime energy is ?very low,? she gets two hours at most. States she has a long hx of insomnia and it is worse now. Lack of benefit on melatonin and Benadryl. Says she is anxious, has a hx of panic attacks. Denies having nightmares or flashbacks. She admits to having AH, says she hears voices and they ?talk to me about stuff,? says they tell her good things and she can ignore them. Says her appetite is good. Reports she came to the hospital because she wants a psychiatrist. Mood is ?depressed,? however also says she has days in which her energy is high and she is ?dancing and praying? and this can last a few days. Denies SI, denies hx of self harm. Says she feels safe. Cuts interview off early, ?can we talk about this tomorrow?? Past Psychiatric History: -Has OP therapy from [facility] x a few months. -Hx of crisis evals, last 03/03/22 due to paranoia that someone has been following and watching her. Crisis eval 12/06/20 due to her mom contacting the police due to paranoia.? -Past meds: celexa (took for a day or two, had GI SE) Medical Evaluation Reviewed: Yes PMFSH Family History: -Depression, anxiety, someone ?losing their mind,? substance use Social History: -Resides with pt?s mother (Liza) and daughter (David, age 13). -Unemployed, isolating in her room daily -Born in [place], moved to the [place] at age 8. Graduated from [employer], no IEP or 504. Substance History: -Denies Trauma History: -Brother murdered 12/05/2017 Precis: Lin is a 32 y.o. female who carries a dx of schizoaffective disorder, bipolar type. She presented to [facility] on 08/17/22 after her mother called crisis due to making delusional statements i.e. saying she is part of the [place] and speaking to her brother. She told crisis she has technology throughout her body, that she is friends with Leeann Faria and talks to her daily, laughing incongruently during assessment. She has not been sleeping x a few days. Impaired functioning i.e. leaves food on stove too long. Per pt?s mom, her sx have been worse x 2 weeks but have been ongoing x 3 yrs after her brother was murdered. 08/18: Started olanzapine 5 mg HS for psychotic sx, increase as tolerated. Pt appears naive to antipsychotic medication. Pt asks for melatonin. 08/19: slept well last night on zyprexa 5.? guarded, flat, appears internally preoccupied.? met with pt and her mother. 08/20: increase HS zyprexa to 10 mg and make ODT to ensure compliance.? no change in Sx. 08/21: disrupted sleep on zyprexa 10 mg at HS, denies feeling any different from 5 mg to 10 mg.? psychosis continues.? add lithium 450 BID to target what increasingly appears to be mixed manic state. 08/22: possibly better sleep last night, but only had zyprexa 10 (refused HS lithium).? took lithium this morning.? for the first time able to tolerate remaining in interview for more than 3 minutes (in fact, did not excuse herself prematurely at all today).? otherwise does not appear to have improved.? continue current mgmt, encourage lithium compliance. 08/23: No changes to med plan 08/24: No changes to med plan 08/25: declined increase in lithium.? has taken zyprexa only every other night, agrees to take it tonight as when she doesn't take it she does not sleep at all.? concerned lithium is making her dizzy.? psycho-ed provided to pt and mother. 08/26: refusing lithium, took zyprexa last night.? pt encouraged to take both medications.? planning for discharge , on expiry of 3-day notice. 08/27: no change from yesterday.? D/C tomorrow.? DC ativan today. 08/28: pt took lithium this morning as ativan was not available. of note, she was again able to come to interview room and tolerated sitting for interview for 15 minutes or so. discharged with Rx for lithium in the hope she will actually take it. 3-day up today, no grounds for commitment. pt discharged to her mother's care as per plan. Time Spent with Patient Time attestation: Total time spent providing and/or coordinating discharge services: Time spent: Greater than 30 minutes Discharge Plan Discharge Anticipated Discharge Date/Time: 08/28/22 12:00 Patient Disposition: Home, Self-Care Discharge Diagnosis: Schizoaffective Disorder, Bipolar Type Referrals: Ronel Trinidad (Therapy) [Other] - 08/29/22 2:00 pm (IN OFFICE APPOINTMENT -Please arrive fifteen minutes prior to your appointment in order to fill out the necessary paperwork. ) Madeleine Carson (Psychiatry) [Other] - 09/24/22 2:00 pm (IN OFFICE APPOINTMENT -Psychiatric Evaluation ) Madeleine Carson (Psychiatry) [Other] - 10/29/22 10:00 am (IN OFFICE APPOINTMENT -Medication Management ) Leon Grande PA-C [Primary Care Provider] - 1 Week Discharge Medications: New lithium carbonate 450 mg Tablet Extended Release 450 mg PO BID 30 Days Qty: 60 0RF olanzapine 10 mg tablet 10 mg PO BEDTIME 30 Days Qty: 30 0RF Discharge Orders: Discharge Order (Routine); Ordered 08/28/22 Ordered By: Maldonado Hansen Diet: Advance to usual diet Activity on Discharge: As tolerated Stand Alone Forms: Patient Portal Discharge page, Community Support Care Plan Goals: remain safe and stable in the outpatient treatment setting Health Concerns: none Plan of Treatment: take medications as prescribed, attend appointments as scheduled Assessment: not at imminent risk of harm to self or others Discharge Date/Time: 08/28/22 12:09
== END 2022-08-28 12:09 | disposition home or self-care (01) | DRG 750 ==
LOC: HO.ED 08-18 16:17 → HO.PADLT16 08-18 16:42
PROVIDERS: Nurse Practitioner Family; Admitting Provider Registered Nurse; Emergency Provider Emergency Medicine; PCP Physician Assistant Medical; Visit Provider Psychiatry & Neurology Psychiatry
DX: F25.0 Schizoaffective disorder, bipolar type (principal); Z20.822 Contact with and (suspected) exposure to COVID-19; Z79.899 Other long term (current) drug therapy
CPT/HCPCS: 36415; 80053; 80061; 80307; 81003; 81025; 82077; 82607; 82746; 83036; 83735; 84439; 84443; 85025; 87635; 99284